=== PATIENT | male | born 1945 | race Caucasian/White ===

== ENCOUNTER → 2018-01-16 14:12 | Outpatient (CLI) | payer MEDICARE, MEDICAID, SELFPAY ==
--- NOTE | 2018-01-16 14:12 | DI.REPORT_ITS ---
SYMPTOMS/DIAGNOSIS: LEFT LOWER LOBE PNEUMONIA/PERSISTENT COUGH AND SHORTNESS OF BREATH, FATIGUE CHEST X-RAY, FRONTAL AND LATERAL VIEWS: Comparison is 03/30/16. The heart size and pulmonary vasculature are stable and within normal limits. The lungs are clear. No effusions or pneumothoraces are identified. Degenerative changes are seen in the spine. IMPRESSION: No acute pulmonary process.
[2018-01-16 15:46] LABS: NT-proBNP 3169 pg/mL
[2018-01-16 15:52] LABS: Abs Immature Grans 0.08 k/cumm (0.0-0.09); Absolute Eosinophil Count 0.17 k/cumm (0.0-0.7); Absolute Lymphocyte Count 2.02 k/cumm (1.2-3.4); Absolute Monocyte Count 1.12 k/cumm (0.11-0.7); Absolute Neutrophil Count 8.07 k/cumm (1.2-6.7); Basophils % 0.3; Eosinophils % 1.5; HCT 40.7 % (40.0-50.0); HGB 12.6 g/dL (13.5-17.5); Immature Grans % 0.7; Lymphocytes % 17.6; Mean Corpuscular Hemoglobin 23.7 pg (27.0-33.0); Mean Corpuscular Volume 76.6 fL (80-95); Mean Platelet Volume 10.2 fL (8.0-11.0); Monocytes % 9.7; Neutrophils % 70.2; Platelet Count 227 x1000/uL (130-400); RBC 5.31 m/cumm (4.50-6.00); RBC Distribution Width 19.7 % (11.8-14.1)
[2018-01-16 15:53] LABS: Absolute Basophil Count 0.03 k/cumm (0.0-0.2); Anisocytosis 2+; Diff Comment RBC Morph Reviewed; Hypochromasia 1+; Microcytosis 2+
[2018-01-16 15:54] LABS: Poikilocytes 1+
== END ==
PROVIDERS: PCP Family Medicine; Visit Provider Family Medicine
DX: J18.1 Lobar pneumonia, unspecified organism (principal); R06.02 Shortness of breath; R05 Cough; R53.83 Other fatigue
CPT/HCPCS: 71046; 36415; 83880; 85025

== ENCOUNTER 2018-03-18 02:45 | Outpatient (CLI) | payer MEDICARE, MEDICAID, SELFPAY ==
[2018-03-18 08:31] LABS: HGB 15.1 g/dL (13.5-17.5); Mean Corp. HGB Concentration 31.5 g/dL (32.0-36.0); Mean Corpuscular Hemoglobin 25.6 pg (27.0-33.0); Mean Corpuscular Volume 81.4 fL (80-95); Mean Platelet Volume 9.9 fL (8.0-11.0); Platelet Count 222 x1000/uL (130-400); White Blood Cell Count 11.29 k/cumm (4.4-10.8)
[2018-03-18 08:44] LABS: Hemoglobin A1C 7.6 % (4.5-6.2)
[2018-03-18 08:59] LABS: COMMENT (LAB VIEW ONLY) 52.64 mg/dL; Microalb ug/mg Crea 1417.9 ug/mg Cr
[2018-03-18 09:12] LABS: Iron 59 ug/dL (50-175)
[2018-03-18 09:21] LABS: ALT 33 U/L (12-78); AST 19 U/L (15-37); Albumin 3.9 g/dL (3.4-5.0); Alkaline Phosphatase 131 U/L (46-116); Anion Gap 10.4 mmol/L (3-11); BUN 31 mg/dL (7-18); Bilirubin, Total 0.8 mg/dL (0.2-1.0); CO2 26.6 mmol/L (21.0-32.0); CREATININE 1.51 mg/dL (0.70-1.30); Calcium 9.1 mg/dL (8.5-10.1); Chloride 104 mmol/L (98-107); Glucose 149 mg/dL (70-100); NT-proBNP 3251 pg/mL; Potassium 4.4 mmol/L (3.5-5.1); Sodium 141 mmol/L (136-145); Total Protein 7.6 g/dL (6.4-8.2)
[2018-03-18 09:44] LABS: Ferritin 37 ng/mL (8-388)
== END 2018-03-18 03:05 ==
PROVIDERS: PCP Family Medicine; Visit Provider Family Medicine
DX: E11.9 Type 2 diabetes mellitus without complications (principal); D50.9 Iron deficiency anemia, unspecified; R06.02 Shortness of breath; I25.10 Atherosclerotic heart disease of native coronary artery without angina pectoris; D64.9 Anemia, unspecified
CPT/HCPCS: 36415; 80053; 85027; 82043; 82570; 82728; 83036; 83540; 83880

== ENCOUNTER 2018-05-01 20:18 | Outpatient (REF) | payer MEDICARE, MEDICAID, SELFPAY | END 2018-05-01 20:38 | LOC: LBN 20:18 | PROVIDERS: PCP Family Medicine | DX: S91.001A Unspecified open wound, right ankle, initial encounter (principal) | CPT/HCPCS: 87070; 87205 ==

== ENCOUNTER 2018-07-04 02:01 | Outpatient (CLI) | payer MEDICARE, MEDICAID, SELFPAY ==
[2018-07-04 09:11] LABS: ALT 23 U/L (12-78); AST 16 U/L (15-37); Albumin 3.6 g/dL (3.4-5.0); Alkaline Phosphatase 121 U/L (46-116); Anion Gap 7.1 mmol/L (3-11); BUN 23 mg/dL (7-18); Bilirubin, Total 1.4 mg/dL (0.2-1.0); CO2 30.9 mmol/L (21.0-32.0); CREATININE 1.46 mg/dL (0.70-1.30); Calcium 8.9 mg/dL (8.5-10.1); Chloride 101 mmol/L (98-107); Cholesterol 73 mg/dL (50-200); Glucose 143 mg/dL (70-100); HDL Cholesterol 28 mg/dL (40-60); Hemoglobin A1C 7.1 % (4.5-6.2); Iron 62 ug/dL (50-175); LDL CHOLESTEROL 29 mg/dL (<100); Magnesium 1.5 mg/dL (1.8-2.4); Potassium 4.2 mmol/L (3.5-5.1); Sodium 139 mmol/L (136-145); Total Iron Binding Capacity 318 ug/dL (250-450); Total Protein 7.3 g/dL (6.4-8.2); Transferrin Sat 19 % (20-55); Triglyceride 109 mg/dL (30-150)
== END 2018-07-04 02:21 ==
PROVIDERS: PCP Family Medicine; Visit Provider Family Medicine
DX: E11.9 Type 2 diabetes mellitus without complications (principal); D50.9 Iron deficiency anemia, unspecified; E83.42 Hypomagnesemia
CPT/HCPCS: 36415; 80053; 80061; 83721; 83036; 83540; 83550; 83735

== ENCOUNTER 2018-11-12 00:07 | Outpatient (CLI) | payer MEDICARE, MEDICAID, SELFPAY ==
--- NOTE | 2018-11-12 09:45 | MERGE_ITS ---
*[facility]* * Cardiology* [address] [place] [address] Date of study: 11/12/2018 Transthoracic Echocardiography M-mode, complete 2D, complete spectral Doppler, and color Doppler *STUDY CONCLUSIONS* Impressions: The patient was in atrial fibrillation throughout study. This rhythm can interfere with accurate global and segmental wall motion analysis. Summary: 1. Procedure narrative: Image quality was fair. 2. Left ventricle: The cavity size was normal. Wall thickness was increased in a pattern of mild LVH. There was severe asymmetric hypertrophy of the septum.1.9 cm septal thickness. Systolic function was at the lower limits of normal. The estimated ejection fraction was 50-55%. There was no dynamic obstruction. Wall motion was normal; there were no regional wall motion abnormalities. 3. Aortic valve: Valve mobility was restricted. There was moderate to severe stenosis. Peak velocity (S): 2.8m/sec. Mean gradient (S): 19.7mm Hg. VTI ratio of LVOT to aortic valve: 0.32. Valve area (VTI): 1cm^2. 4. Ascending aorta: The ascending aorta was mildly dilated. 5. Mitral valve: Mildly calcified annulus. Mildly thickened leaflets. 6. Left atrium: The atrium was moderately dilated. 7. Right ventricle: The cavity size was normal. Wall thickness was normal. Systolic function was normal. 8. Right atrium: The atrium was moderately dilated. 9. Pulmonary arteries: Pulmonary systolic pressure was increased, in the range of 35mm Hg to 45mm Hg. *PATIENT PRESENTATION* Height: 180.3cm ((71in) ) S/D Pressure: 155 / 70 Weight: 140.6kg ((309.4lb) ) BSA: 2.72m^2 Test start time: 09:45 AM. Test stop time: 11:00 AM. PERFORMING Unknown ORDERING Ofelia Carter REFERRING Ofelia Carter CONSULTING Therese Jeffrey PERFORMING [facility] [employer] Abby Trinity, RT (R)(CT), [facility] *PROCEDURE DATA* Procedure information: The patient was identified by two identifiers. This study was interpreted by [facility]. Pertinent images and digital data are archived for permanent storage and are available for subsequent review. Comparison was made to the study of 10/03/2017. Study status: Routine. Transthoracic echocardiography. M-mode, complete 2D, complete spectral Doppler, and color Doppler. A Transthoracic Echocardiogram was performed. Scanning was performed from the parasternal, apical, subcostal, and suprasternal notch acoustic windows. Images were obtained using an [id number] cardiac ultrasound machine. Image quality was fair. Study completion: The patient tolerated the procedure well. There were no complications. History: PMH: CAD AFIB i25.10, i.35.0, *CARDIAC ANATOMY* Left ventricle: The cavity size was normal. Wall thickness was increased in a pattern of mild LVH. There was severe asymmetric hypertrophy of the septum.1.9 cm septal thickness. Systolic function was at the lower limits of normal. The estimated ejection fraction was 50-55%. There was no dynamic obstruction. Wall motion was normal; there were no regional wall motion abnormalities. The study was not technically sufficient to allow evaluation of LV diastolic dysfunction due to atrial fibrillation. Aortic valve: Probably trileaflet; severely thickened leaflets. Valve mobility was restricted. Doppler: There was moderate to severe stenosis. There was no significant regurgitation. VTI ratio of LVOT to aortic valve: 0.32. Valve area (VTI): 1cm^2. Indexed valve area (VTI): 0.4cm^2/m^2. Peak velocity ratio of LVOT to aortic valve: 0.33. Valve area (Vmax): 1.1cm^2. Indexed valve area (Vmax): 0.4cm^2/m^2. Mean velocity ratio of LVOT to aortic valve: 0.34. Valve area (Vmean): 1.1cm^2. Indexed valve area (Vmean): 0.4cm^2/m^2. Mean gradient (S): 19.7mm Hg. Peak gradient (S): 30.8mm Hg. Aorta: Aortic root: The aortic root was at upper normal limits. Ascending aorta: The ascending aorta was mildly dilated. Mitral valve: Mildly calcified annulus. Mildly thickened leaflets. Mobility was not restricted. Doppler: Transvalvular velocity was within the normal range. There was no evidence for stenosis. There was no significant regurgitation. Valve area by pressure half-time: 4.5cm^2. Indexed valve area by pressure half-time: 1.7cm^2/m^2. Peak gradient (D): 5.5mm Hg. Left atrium: The atrium was moderately dilated. Right ventricle: The cavity size was normal. Wall thickness was normal. Systolic function was normal. Pulmonic valve: The pulmonary valve appears to be grossly normal. Doppler: Transvalvular velocity was within the normal range. There was no evidence for stenosis. There was no significant regurgitation. Peak gradient (S): 2mm Hg. Tricuspid valve: Structurally normal valve. Doppler: Transvalvular velocity was within the normal range. There was no evidence for stenosis. There was trivial regurgitation. Pulmonary artery: Pulmonary systolic pressure was increased, in the range of 35mm Hg to 45mm Hg. Right atrium: The atrium was moderately dilated. Pericardium: There was no pericardial effusion. Systemic veins: Inferior vena cava: Well visualized. The vessel was patent and normal in size. The respirophasic diameter changes were in the normal range (greater than or equal to 50%). Baseline ECG: Atrial fibrillation. Measurements Left ventricle Value 10/03/2017 Reference LV ID, ED, PLAX 4.1 cm 4.7 3.5 - 6.0 LV ID, ES, PLAX 3.1 cm 3.5 2.1 - 4.0 LV PW thickness, ED, PLAX 1.2 cm 1.2 LV end-diastolic volume, 113 ml 93 1-p A2C LV ejection fraction, 1-p 54 % 56 A2C LV end-diastolic volume, 132 ml 105 1-p A4C LV ejection fraction, 1-p 54 % 45 A4C LV e', lateral 0.091 m/sec 0.119 LV E/e', lateral 13 11 LV e', medial 0.037 m/sec 0.048 LV E/e', medial 31 27 LV e', average 0.064 m/sec 0.083 LV E/e', average 18 16 Ventricular septum Value 10/03/2017 Reference IVS thickness, ED, PLAX 1.9 cm 1.7 LVOT Value 10/03/2017 Reference LVOT ID, A-P 2.0 cm 2.0 LVOT area 3.2 cm^2 3.2 LVOT peak velocity, S 0.91 m/sec 1.08 LVOT mean velocity, S 0.72 m/sec 0.82 LVOT VTI, S 19.3 cm 24.5 LVOT peak gradient, S 3.3 mm Hg 4.6 LVOT mean gradient, S 2.3 mm Hg 2.9 Stroke volume (SV), LVOT 61 ml 79 DP Stroke index (SV/bsa), 22 ml/m^2 30 LVOT DP Aortic valve Value 10/03/2017 Reference Aortic valve peak 2.8 m/sec 3.1 velocity, S Aortic valve mean 2.12 m/sec 2.28 velocity, S Aortic valve VTI, S 61.0 cm 66.6 Aortic mean gradient, S 19.7 mm Hg 23 Aortic peak gradient, S 30.8 mm Hg 39.4 VTI ratio, LVOT/AV 0.32 0.37 Aortic valve area, VTI 1 cm^2 1.2 Velocity ratio, peak, 0.33 0.34 LVOT/AV Aortic valve area, peak 1.1 cm^2 1.1 velocity Velocity ratio, mean, 0.34 0.36 LVOT/AV Aortic valve area, mean 1.1 cm^2 1.2 velocity Aortic valve area/bsa, 0.4 cm^2/m^2 0.4 mean velocity Aorta Value 10/03/2017 Reference Aortic root ID, ED 3.7 cm 3.7 Ascending aorta ID, A-P, S 3.7 cm 3.6 Left atrium Value 10/03/2017 Reference LA ID, A-P, ES 4.8 cm 5.0 LA ID/bsa, A-P 1.8 cm/m^2 1.9 <=2.2 LA area, ES, A4C (H) 36.3 cm^2 36 8.8 - 23.4 LA area, ES, A2C 21 cm^2 34 LA volume/bsa, ES, 1-p A4C 58 ml/m^2 56 LA volume, ES, 2-p 104 ml 133 LA volume/bsa, ES, 2-p 38 ml/m^2 50 LA/aortic root ratio 1.3 1.35 Mitral valve Value 10/03/2017 Reference Mitral E-wave peak 1.17 m/sec 1.3 velocity Mitral deceleration time 169 ms 165 150 - 230 Mitral pressure half-time 49 ms 48 Mitral peak gradient, D 5.5 mm Hg 6.8 Mitral valve area, PHT, DP 4.5 cm^2 4.6 Tricuspid valve Value 10/03/2017 Reference Tricuspid regurg peak 3.6 m/sec 3.6 velocity Tricuspid peak RV-RA 52.5 mm Hg 51.1 gradient Right atrium Value 10/03/2017 Reference RA area, ES, A4C (H) 30.8 cm^2 30.6 8.3 - 19.5 Pulmonic valve Value 10/03/2017 Reference Pulmonic peak gradient, S 2 mm Hg 3.6 Legend: (L) and (H) keila values outside specified reference range. I have personally reviewed the images and have reviewed and edited the reported findings. Electronically signed by Nitish Wilks 11/12/2018 12:43
== END 2018-11-12 00:27 ==
PROVIDERS: PCP Family Medicine; Visit Provider Internal Medicine Cardiovascular Disease
DX: I48.91 Unspecified atrial fibrillation (principal); I25.10 Atherosclerotic heart disease of native coronary artery without angina pectoris; I35.0 Nonrheumatic aortic (valve) stenosis; I10 Essential (primary) hypertension; E11.9 Type 2 diabetes mellitus without complications
CPT/HCPCS: 93306

== ENCOUNTER 2018-11-29 02:37 | Outpatient (CLI) | payer MEDICARE, MEDICAID, SELFPAY ==
[2018-11-29 11:50] LABS: Hemoglobin A1C 8.2 % (4.5-6.2)
[2018-11-29 12:01] LABS: ALT 25 U/L (12-78); AST 17 U/L (15-37); Albumin 3.4 g/dL (3.4-5.0); Alkaline Phosphatase 123 U/L (46-116); Anion Gap 7.1 mmol/L (3-11); BUN 24 mg/dL (7-18); CO2 28.9 mmol/L (21.0-32.0); CREATININE 1.31 mg/dL (0.70-1.30); Calcium 8.7 mg/dL (8.5-10.1); Chloride 102 mmol/L (98-107); Estimated GFR 53.34 (mL/min/1.73m2); Glucose 207 mg/dL (70-100); Potassium 4.4 mmol/L (3.5-5.1); Sodium 138 mmol/L (136-145)
== END 2018-11-29 02:57 ==
PROVIDERS: PCP Family Medicine; Visit Provider Family Medicine
DX: E11.21 Type 2 diabetes mellitus with diabetic nephropathy (principal)
CPT/HCPCS: 36415; 80053; 82043; 82570; 83036

== ENCOUNTER 2018-12-09 01:58 | Outpatient (CLI) | payer MEDICARE, MEDICAID, SELFPAY ==
--- NOTE | 2018-12-09 09:36 | DI.RAD_ITS ---
SYMPTOM/DIAGNOSIS: CHRONIC COUGH, R05 PA AND LATERAL CHEST: Comparison is made with 16 January 2018 The heart is enlarged, unchanged. The aorta shows calcification. There are mild underlying chronic interstitial changes. No superimposed acute infiltrate, effusion or pulmonary edema seen. IMPRESSION: No acute abnormality.
== END 2018-12-09 02:18 ==
PROVIDERS: PCP Family Medicine; Visit Provider Family Medicine
DX: R05 Cough (principal); I51.7 Cardiomegaly
CPT/HCPCS: 71046

== ENCOUNTER 2018-12-27 04:16 | Outpatient (CLI) | payer MEDICARE, MEDICAID, SELFPAY ==
[2018-12-27] MEDS: Inhaler, Assist Device 1 EACH MC (10:43)
[2018-12-27] MEDS: Albuterol HFA 18 GM 200 PUFF INH IH (10:44)
--- NOTE | 2018-12-27 15:59 | PFT_ITS ---
PULMONARY FUNCTION TEST REPORT DATE OF SERVICE: December 27, 2018 REQUESTING PROVIDER: Therese Jeffrey M.D. Spirometry shows mild obstructive airways disease with no significant bronchodilator response. Lung volumes show no evidence of restriction. Diffusion capacity mildly reduced, which is moderately reduced when corrected to alveolar volume. Airways resistance normal. IMPRESSION: Overall mild obstructive airways disease, however both spirometries were suboptimal patient effort. There is no significant bronchodilator response. This is associated with mild diffusion defect. When this study was compared to previous one from 04/15/09, the patient has a total of 1040 cc's decline in FVC; FEV1 has declined by 1170 cc's. Part of the decline may be related to an effort-related phenomenon. Clinical correlation recommended. JANIYA/brittany D/
== END 2018-12-27 04:36 ==
PROVIDERS: PCP Family Medicine; Visit Provider Family Medicine
DX: R06.09 Other forms of dyspnea (principal); R05 Cough
CPT/HCPCS: 94060; 94150; 94726; 94729

== ENCOUNTER → 2019-02-06 13:13 | Outpatient (BNVA) | payer MEDICARE, MEDICAID, SELFPAY | PROVIDERS: PCP Family Medicine; Visit Provider Internal Medicine Cardiovascular Disease | DX: I25.10 Atherosclerotic heart disease of native coronary artery without angina pectoris (principal); I48.91 Unspecified atrial fibrillation; Z79.01 Long term (current) use of anticoagulants; I12.9 Hypertensive chronic kidney disease with stage 1 through stage 4 chronic kidney disease, or unspecified chronic kidney disease; E78.5 Hyperlipidemia, unspecified; I73.9 Peripheral vascular disease, unspecified; I35.0 Nonrheumatic aortic (valve) stenosis; N18.9 Chronic kidney disease, unspecified | CPT/HCPCS: 99214 ==

== ENCOUNTER 2019-02-26 08:34 | Outpatient (CLI) | payer MEDICARE, MEDICAID, SELFPAY ==
[2019-02-26 09:40] LABS: Bilirubin Negative (Negative); Blood Moderate (Negative); Clarity Clear (Clear); Glucose Negative (Negative); Ketones Negative (Negative); Leukocyte Esterase Negative (Negative); Nitrite Negative (Negative); Urobilinogen 0.2 EU/dL (Up TO 0.2); pH 6.5 (5-8)
[2019-02-26 09:46] LABS: Hemoglobin A1C 7.8 % (4.5-6.2)
[2019-02-26 09:52] LABS: Bacteria Rare HPF (Negative); C & S Indicated? No; Crystals Rare Amorphous HPF (Negative); Epithelial Cells Rare HPF (Negative); Mucus Negative (Negative); RBC 0-2 (0-2); WBC 0-2 HPF (0-5)
[2019-02-26 10:34] LABS: Anion Gap 15.4 mmol/L (3-11); BUN 29 mg/dL (7-18); CO2 22.6 mmol/L (21.0-32.0); CREATININE 2.36 mg/dL (0.70-1.30); Calcium 8.7 mg/dL (8.5-10.1); Chloride 99 mmol/L (98-107); Estimated GFR 27.04 (mL/min/1.73m2); Glucose 90 mg/dL (70-100); Magnesium 1.8 mg/dL (1.8-2.4); Sodium 137 mmol/L (136-145); Uric Acid 8.1 mg/dL (3.5-7.2)
[2019-02-26 10:38] LABS: COMMENT (LAB VIEW ONLY) 58.65 mg/dL
[2019-02-26 10:40] LABS: Microalb ug/mg Crea 418.8 ug/mg Cr
== END 2019-02-26 08:54 ==
PROVIDERS: PCP Family Medicine; Referring Provider Family Medicine; Visit Provider Family Medicine
DX: E11.9 Type 2 diabetes mellitus without complications (principal); E83.42 Hypomagnesemia; Z80.52 Family history of malignant neoplasm of bladder
CPT/HCPCS: 80048; 81003; 81015; 82043; 82570; 83036; 83735; 84550; 86140

== ENCOUNTER 2019-03-18 12:32 | Outpatient (CLI) | payer MEDICARE, MEDICAID, SELFPAY ==
--- NOTE | 2019-03-18 12:07 | DI.RAD_ITS ---
EXAM: XR ANKLE RT COMPLETE INDICATION: pain. COMPARISON: RIGHT ANKLE COMPLETE from 10/24/2016 TECHNIQUE: 2D digital imaging was performed. FINDINGS: There is a mildly displaced oblique fracture through the base of the medial malleolus. There is an o sseous density adjacent to the tip of the lateral malleolus. This is suspicious for an avulsed fract ure. There are marked degenerative changes seen at the ankle joint. There are subchondral cysts and scler osis with marked joint space narrowing. There is soft tissue swelling about the ankle. Extensive vascular calcifications are present. There is a small spur at the plantar surface of the calcaneus. IMPRESSION: Mildly displaced fracture involving the medial malleolus. Question of an avulsed fracture arising from the lateral malleolus.
== END 2019-03-18 12:52 ==
PROVIDERS: PCP Family Medicine; Referring Provider Family Medicine; Visit Provider Orthopaedic Surgery
DX: M25.571 Pain in right ankle and joints of right foot (principal); M19.071 Primary osteoarthritis, right ankle and foot; M79.89 Other specified soft tissue disorders; M77.31 Calcaneal spur, right foot; E11.610 Type 2 diabetes mellitus with diabetic neuropathic arthropathy; Z79.4 Long term (current) use of insulin
CPT/HCPCS: 99214; 73610

== ENCOUNTER 2019-04-22 11:22 | Outpatient (CLI) | payer MEDICARE, MEDICAID, SELFPAY ==
--- NOTE | 2019-04-22 11:13 | DI.RAD_ITS ---
EXAM: XR FINGER LT INDEX INDICATION: pain. COMPARISON: No exams were available for comparison TECHNIQUE: 2D digital imaging was performed. FINDINGS: An elongated metallic foreign body is seen in the ventral soft tissues of the level of the proximal phalanx. Vascular calcifications are seen. There is soft tissue swelling. The bones appear osteope paula. There is mild joint space narrowing and periarticular spurring, greater at the distal interphal angeal joint. IMPRESSION: Degenerative changes. Soft tissue foreign body.
== END 2019-04-22 11:42 ==
PROVIDERS: PCP Family Medicine; Visit Provider Orthopaedic Surgery
DX: M79.645 Pain in left finger(s) (principal); M79.89 Other specified soft tissue disorders; M85.88 Other specified disorders of bone density and structure, other site; S60.451A Superficial foreign body of left index finger, initial encounter; X58.XXXA Exposure to other specified factors, initial encounter
CPT/HCPCS: 99214; 73140

== ENCOUNTER → 2019-05-01 13:58 | Outpatient (BNVA) | payer MEDICARE, MEDICAID, SELFPAY | PROVIDERS: PCP Family Medicine; Referring Provider Family Medicine; Visit Provider Internal Medicine Cardiovascular Disease | DX: I35.0 Nonrheumatic aortic (valve) stenosis (principal); I25.10 Atherosclerotic heart disease of native coronary artery without angina pectoris; E11.22 Type 2 diabetes mellitus with diabetic chronic kidney disease; I12.9 Hypertensive chronic kidney disease with stage 1 through stage 4 chronic kidney disease, or unspecified chronic kidney disease; E78.5 Hyperlipidemia, unspecified; I73.9 Peripheral vascular disease, unspecified; N18.9 Chronic kidney disease, unspecified; Z79.4 Long term (current) use of insulin | CPT/HCPCS: 99205; 99215 ==

== ENCOUNTER 2019-06-10 14:35 | Outpatient (REF) | payer MEDICARE, MEDICAID, SELFPAY ==
[2019-06-10 15:16] LABS: Anion Gap 11.5 mmol/L (3-11); BUN 58 mg/dL (7-18); CO2 16.5 mmol/L (21.0-32.0); CREATININE 1.94 mg/dL (0.70-1.30); Calcium 8.3 mg/dL (8.5-10.1); Chloride 89 mmol/L (98-107); Estimated GFR 33.91 (mL/min/1.73m2); Glucose 113 mg/dL (74-106)
[2019-06-10 15:29] LABS: Potassium 6.3 mmol/L (3.5-5.1); Sodium 117 mmol/L (136-145)
== END 2019-06-10 14:55 ==
LOC: LBN 14:35
PROVIDERS: PCP Family Medicine; Visit Provider Nurse Practitioner Adult Health
DX: E11.9 Type 2 diabetes mellitus without complications (principal); N18.3 Chronic kidney disease, stage 3 (moderate); I10 Essential (primary) hypertension; D64.9 Anemia, unspecified; E78.5 Hyperlipidemia, unspecified
CPT/HCPCS: 80048

== ENCOUNTER 2019-06-10 17:21 | Emergency (ER) | payer MEDICARE, MEDICAID, SELFPAY ==
[2019-06-10] VITALS (44 sets, daily range): BP systolic 84–145; BP diastolic 37–114; PULSE 51–176; RESP 4–25; TEMP 36.4; O2SAT 91–99
[2019-06-10] MEDS: Albuterol 2.5 MG/3 ML INH SOLN VIAL 7.5 MG UPD (17:05)
--- NOTE | 2019-06-10 17:07 | W.ED.GENAD ---
Discharge Plan Disposition Patient Disposition: [facility] Condition: Critical Discharge Details Chief Complaint: SOB Clinical Impression: Cardiac tamponade, Acute pericardial effusion, Acute hyperkalemia, Acute hyponatremia, Acute urinary retention, Acute respiratory failure, Acute kidney injury Primary Care Provider: Therese Jeffrey ED Provider: Antonino Lucas Home Meds and New Rx's Prescriptions: No Action Basaglrosales Garcia U-100 Insulin 100 unit/mL (3 mL) insulin pen 40 unit subcut BID RF: 0 colchicine 0.6 mg tablet 0.6 mg PO DAILY Qty: 90 RF: 1 ONE TOUCH ULTRA 1 EACH EACH 1 ea Miscellaneous BID Qty: 180 RF: 4 (DME) lancets [OneTouch UltraSoft Lancets] 1 EACH misc 1 ea Miscellaneous BID Qty: 180 RF: 4 aspirin [Aspirin Low-Strength] 81 MG tablet,chewable 81 mg PO DAILY Qty: 30 RF: 5 (DME) BD Regular Bevel Ceres 1 EACH needle 1 ea Miscellaneous DAILY Qty: 100 RF: 4 (DME) pen needle, diabetic [BD Ultra-Fine Orig Pen Needle] 1 EACH needle Miscellaneous BID Qty: 100 RF: 5 amlodipine 5 mg tablet 5 mg PO DAILY Qty: 90 RF: 4 nitroglycerin [Nitrostat] 0.4 mg tablet, sublingual 0.4 mg Sublingual DIRECTED Qty: 25 RF: 4 ferrous sulfate 325 mg (65 mg iron) tablet 325 mg PO TID Qty: 90 RF: 4 Xarelto 20 mg tablet 20 mg PO DAILY Qty: 90 RF: 4 isosorbide mononitrate 60 mg tablet extended release 24 hr 60 mg PO DAILY Qty: 90 RF: 4 albuterol sulfate 90 mcg/actuation HFA aerosol inhaler 1 - 2 puff IH Q6H PRN (Reason: shortness of breath or wheezing) Qty: 2 RF: 6 (DME) Blood Glucose Test Strip 1 ea Miscellaneous DAILY Qty: 100 RF: 5 acetaminophen 325 mg Tablet 650 mg PO Q4H PRNRF: 0 furosemide 20 mg Tablet 20 mg PO DAILY RF: 0 fluticasone propionate 50 mcg/actuation [place],Suspension 1 spray INTRANASAL DAILY RF: 0 metformin 500 mg Tablet 500 mg PO .QEVE RF: 0 metoprolol succinate 50 mg Tablet Extended Release 24 Hr 50 mg PO DAILY RF: 0 sennosides-docusate sodium [Senna with Docusate Sodium] 8.6-50 mg Tablet 2 tab-cap PO BID RF: 0 metoprolol succinate 100 mg Tablet Extended Release 24 Hr 100 mg PO DAILY RF: 0 melatonin 3 mg Tablet 6 mg PO HS RF: 0 valsartan 320 mg Tablet 320 mg PO DAILY RF: 0 polyethylene glycol 3350 17 gram/dose Powder 17 g PO DAILY RF: 0 oxycodone 5 mg Tablet 5 mg PO Q4H PRNRF: 0 magnesium chloride 64 mg Tablet,Delayed Release (Dr/Ec) 64 mg PO BID RF: 0 Healthy Eyes Lutein-Zeaxanthin 60 mg-13.5 mg- 15 mg-2 mg-6 mg Capsule 1 cap PO QAM RF: 0 (DME) Oxygen Tank RF: 0 furosemide 40 mg tablet 40 mg PO DAILY RF: 0 metformin [Glucophage] 1,000 MG tablet 1,000 mg PO DAILY RF: 0 allopurinol [Zyloprim] 300 mg tablet 300 mg PO BID RF: 0 Medical Decision Making Upon my evaluation, this patient had a high probability of imminent or life-threatening deterioration, which required my direct attention, intervention, and personal management. I have personally provided 45 minutes of critical care time exclusive of time spent on separately billable procedures. Time includes review of laboratory data, radiology results, discussion with consultants, and monitoring for potential decompensation. Interventions were performed as documented. 73-year-old male with a past medical history of heart failure, CKD, insulin-dependent diabetes, moderate aortic stenosis, and a history of stroke. He has coronary artery disease with stenting in both 2005 and 2007. He presents today for evaluation of increasing oxygen demand and electrolyte abnormalities. Patient was noted to have slight atypical mentation today. Labs were drawn and his sodium was noted to be 117. Is also had a slight increase in oxygen requirements going from his normal 3 L to currently needing 5 L of oxygen per his care facility. Patient presents by EMS in notable respiratory distress. Upon their arrival oxygen was in the 70s on 5 L, they gave him 15 L and brought immediately to the ER. Physical exam demonstrates decreased breath sounds throughout, crackles and wheezes bilaterally. Mental status is ANO x1 but is able to answer yes or no questions. He does state that he does not want intubation or CPR. He also states that he does not want any significant heroic efforts. I did contact his significant other Mercedez Mejia, and discussed the case with her. She states that this is also what his wishes have been. 7:33 PM Portable chest x-ray was performed immediately upon arrival, notably wide heart, blood pressure stable, notable vascular congestion. Bedside ultrasound was performed and demonstrated notable pericardial effusion with what appears to be mild right ventricular collapse. Garcia catheter was placed and within 15 minutes he had 2 L of excreted urine. Laboratory work-up is returning, patient demonstrates sodium of 116, potassium of 6.4, EKG shows a wide complex dysrhythmia, with what appears to be nonspecific ST depression primarily in the anterior lateral leads. No clear evidence of electrical alternans on EKG though. Creatinine is 2.05, which is slightly higher than baseline, proBNP is notably elevated at 20,000, troponin is normal. Urinalysis shows no infection. He does have a white count of 15. Patient demonstrates notably complicated picture. He shows both significant fluid overload, as well as kidney injury, in conjunction with electrolyte derangement. This may be secondary to some of his medications, or potential secondary to post renal obstruction which is now been released by the Garcia catheter. He has been doing well with BiPAP. ABG demonstrates evidence of a metabolic acidosis with PCO2 of 33, pH is 7.2, and a bicarb of 13. Patient is on Xarelto. Blood pressure is stable for the time being, I did discuss with him the notable critical nature of his current status, as well as the potential need for procedure like a pericardiocentesis and a pericardial window. I discussed the concern for morbidity and mortality for all of this is a broad clinical picture, at this time the patient has had a notable change in his thoughts, and states that he would like to go to [facility] immediately to get these procedures performed. He still would like to hold off on intubation and CPR. However he does want these other potential heroic interventions otherwise. I discussed the case with [facility] lumber chain offbearer, as well as cardiology, I spoke with Dr. Atkins, case was also discussed with the ICU attending Dr. Leonard. They agree with the assessment and plan recommend transfer. They to agree on holding off on pericardiocentesis at this time secondary to the patient's stable vitals. Patient will be transferred to [facility] by [facility]. For the patient's potassium we will give 3 albuterol nebulizations, 10 units of IV insulin, amp of D50, calcium gluconate. I have extensively reviewed the treatment plan with the patient. I have addressed all patient concerns at this time. I have also discussed the plan with the admitting physician and they agree with the current assessment and plan and have agreed to assume responsibility for the patient. All parties demonstrate verbal understanding and agreement with our assessment and plan at this time. Of note the patient's significant other is Ms. Mercedez Ponce and she can be reached at [phone]. I did personally call her and update her of the patient's current clinical scenario. EKG 17: 32 Rate 59, atrial fibrillation, potential right bundle branch block versus wide-complex secondary to hyperkalemia. Less than a millimeter ST depression in the lateral leads. As well as lead III and aVF. Notable changes from prior EKGs. FINDINGS: Lungs: Low lung volumes. Prominent, indistinct pulmonary vasculature. left basilar hazy opacity. Pleural space: Unremarkable. No pleural effusion. No pneumothorax. Heart/Mediastinum: Stable enlarged cardiomediastinal silhouette. Vasculature: Redemonstrated aortic arch calcification. Bones/joints: Unremarkable. IMPRESSION: 1. Pulmonary edema. 2. Left basilar hazy opacity consistent with edema, atelectasis, aspiration or infection. Thank you for allowing us to participate in the care of your patient. Dictated and Authenticated by: Roger Christie MD 06/10/2019 6:03 PM Eastern Time ([place] & [place]) HPI General Date/Time Provider Initiated Documentation: 06/10/19 17:34. HPI Narrative: 73-year-old male who is a notably poor historian with a past medical history of atrial fibrillation, heart failure, CKD, insulin-dependent diabetes, moderate aortic stenosis, and a history of stroke. He has coronary artery disease with stenting in both 2005 and 2007. He had recent surgery on his right lower extremity at the end of April, and [facility]. He is on Xarelto. He presents today for evaluation of increasing oxygen demand and electrolyte abnormalities. Patient was noted to have slight atypical mentation today. Labs were drawn and his sodium was noted to be 117. Is also had a slight increase in oxygen requirements going from his normal 3 L to currently needing 5 L of oxygen per nursing report. However upon EMS arrival they notice his oxygen to be in the high 70s, they started him on 15 L brought him to the ER for further evaluation and management. Currently the patient is a notable respiratory distress, he denies chest pain weakness. He is a poor historian and has no other complaints. I did speak with Mercedez Edgarball who is the significant other/close friend of the patient, discussed the case with her for additional background. Of note both Mercedez Ponce and the patient are stating that he does not want to be intubated he does not want CPR and he does not want any heroic measures or significant procedures. Related Data Home Medications Medication Instructions Recorded Confirmed lancets [Onetouch Lancets] #180 ea 09/28/14 05/01/19 aspirin [Aspirin Low-Strength] 81 mg PO DAILY #30 tab-cap 12/29/14 06/10/19 needle (disp) 21 G [Ceres] #100 ea 08/24/16 05/01/19 pen needle, diabetic [Bd #100 11/23/17 05/01/19 Ultra-Fine Pen Needle] amlodipine 5 mg tablet 5 mg PO DAILY #90 tab-cap 05/07/18 06/10/19 nitroglycerin 0.4 mg sublingual 0.4 mg SUBLINGUAL DIRECTED #25 05/27/18 06/10/19 tablet tab-cap ferrous sulfate 325 mg (65 mg 325 mg PO TID #90 tab-cap 10/30/18 06/10/19 iron) tablet rivaroxaban 20 mg tablet 20 mg PO DAILY #90 tab-cap 10/30/18 06/10/19 isosorbide mononitrate 60 mg 60 mg PO DAILY #90 tab-cap 01/23/19 06/10/19 tablet,extended release 24 hr albuterol sulfate 90 mcg/actuation 1 - 2 puff IH Q6H PRN #2 each 01/30/19 05/01/19 aerosol inhaler blood sugar diagnostic #100 strip 02/04/19 05/01/19 colchicine 0.6 mg tablet 0.6 mg PO DAILY #90 tab 03/17/19 06/10/19 insulin glargine 100 unit/mL (3 40 unit SUBCUT BID ml 05/01/19 06/10/19 mL) subcutaneous pen Oxygen 06/10/19 06/10/19 acetaminophen 650 mg PO Q4H PRN 06/10/19 06/10/19 allopurinol [Zyloprim] 300 mg PO BID 06/10/19 06/10/19 fluticasone propionate 1 spray INTRANASAL DAILY 06/10/19 06/10/19 furosemide 20 mg PO DAILY 06/10/19 06/10/19 furosemide 40 mg PO DAILY 06/10/19 06/10/19 magnesium chloride 64 mg PO BID 06/10/19 06/10/19 melatonin 6 mg PO HS 06/10/19 06/10/19 metformin 500 mg PO .QEVE 06/10/19 06/10/19 metformin [Glucophage] 1,000 mg PO DAILY 06/10/19 06/10/19 metoprolol succinate 50 mg PO DAILY 06/10/19 06/10/19 metoprolol succinate 100 mg PO DAILY 06/10/19 06/10/19 oxycodone 5 mg PO Q4H PRN 06/10/19 06/10/19 polyethylene glycol 3350 17 g PO DAILY 06/10/19 06/10/19 sennosides-docusate sodium [Senna 2 tab-cap PO BID 06/10/19 06/10/19 with Docusate Sodium] valsartan 320 mg PO DAILY 06/10/19 06/10/19 vit C,H-As-isuls-lutein-zeaxan 1 cap PO QAM 06/10/19 06/10/19 [Healthy Eyes Lutein-Zeaxanthin] Previous Rx's Medication Instructions Recorded amlodipine 5 mg tablet 5 mg PO DAILY #90 tab-cap 05/07/18 nitroglycerin 0.4 mg sublingual 0.4 mg SUBLINGUAL DIRECTED #25 05/27/18 tablet tab-cap ferrous sulfate 325 mg (65 mg 325 mg PO TID #90 tab-cap 10/30/18 iron) tablet rivaroxaban 20 mg tablet 20 mg PO DAILY #90 tab-cap 10/30/18 isosorbide mononitrate 60 mg 60 mg PO DAILY #90 tab-cap 01/23/19 tablet,extended release 24 hr albuterol sulfate 90 mcg/actuation 1 - 2 puff IH Q6H PRN #2 each 01/30/19 aerosol inhaler blood sugar diagnostic #100 strip 02/04/19 colchicine 0.6 mg tablet 0.6 mg PO DAILY #90 tab 03/17/19 Allergies Allergy/AdvReac Type Severity Reaction Status Date / Time ibuprofen AdvReac Intermediate BLEEDING Verified 06/10/19 17:24 ULCERS omeprazole AdvReac Intermediate n/v Verified 06/10/19 17:24 pantoprazole AdvReac Unknown unknown Verified 06/10/19 17:24 Review of Systems All systems reviewed & are unremarkable except as noted in HPI and below PFSH Medical History (Updated 04/10/19 @ 11:20 by Santhosh Gamino MD) RHODES (dyspnea on exertion) (Acute) Surgical History (Updated 11/28/18 @ 13:16 by Kristopher May) Procedure LEFT HEART CARDIAC CATH, 2007 Restenosis of LCX Stent placement INSERT 2 VASCULAR STENTS, 2005;[place]. [place] [facility] [place]OT[place]AC[place] Social History (Updated 05/01/19 @ 14:13 by Christi Perez RN) Smoking/Tobacco Use Status: Former Tobacco Use Second Hand Exposure: Yes Alcohol Intake: former Drug use: Never What type of physical activity do you participate in: sedentary lifestyle and restricted ROM & activity Exam Narrative Exam Narrative: 1.Const: Morbidly obese well-developed, appearing stated age 2.Eyes: PERRL, no conjunctival injection, and symmetrical lids. 3.ENT: Atraumatic external nose and ears. Dry MM. Neck: Symmetric, trachea midline, No thyromegaly. 4.CVS: +S1/S2, Peripheral pulses 1+ and equal in all extremities. 5.RESP: Muffled lung sounds throughout, mild wheezes in the bases bilaterally. Difficult to auscultate anything in particular. Notable respiratory distress. 6.GI: Soft, Nontender/Nondistended, No hepatosplenomegaly. No guarding or rebound. 7.MSK: Normocephalic/Atraumatic, cast is noted on right lower extremity. No significant pitting edema. Patient able to wiggle toes bilaterally. Capillary refill slightly delayed in both toes, but present. Dorsalis pedis +2 on the left. 8.Skin: Warm, Dry. No rashes or lesions. 9.Neuro: instructor product inspection II-XII grossly intact. Sensation grossly intact, no focal neurologic deficits. 10.Psych: ANO x1, able to answer yes and no questions.
--- NOTE | 2019-06-10 17:26 | DI.RAD_ITS ---
EXAM: XR PORTABLE CHEST AP INDICATION: SOB, increasing O2 demand. COMPARISON: XR CHEST 2V PA LATERAL from 12/09/2018 TECHNIQUE: 2D digital imaging was performed. FINDINGS: The heart appears enlarged but stable. There is atherosclerosis of the thoracic aorta. There is poor inspiration with prominence of the pulmonary vasculature. Question of an infiltrate in the left ibeth g base is noted. No definite effusions or pneumothoraces are identified. Degenerative changes are s een in the spine. IMPRESSION: 1. Indistinct pulmonary vasculature. This may be due to low lung volumes but mild pulmonary edema ca nnot be excluded. 2. Opacity in the left base. This may represent edema, atelectasis or infection.
[2019-06-10] MEDS: Albuterol/Ipratropium 3 ML UPD VIAL (17:35)
[2019-06-10 17:38] LABS: Abs Immature Grans 0.17 k/cumm (0.0-0.09); Absolute Basophil Count 0.02 k/cumm (0.0-0.2); Absolute Eosinophil Count 0.03 k/cumm (0.0-0.7); Absolute Lymphocyte Count 0.31 k/cumm (1.2-3.4); Absolute Monocyte Count 1.04 k/cumm (0.11-0.7); Basophils % 0.1; Eosinophils % 0.2; HCT 36.6 % (40.0-50.0); HGB 12.5 g/dL (13.5-17.5); Immature Grans % 1.1; Mean Corp. HGB Concentration 34.2 g/dL (32.0-36.0); Mean Corpuscular Hemoglobin 28.3 pg (27.0-33.0); Mean Corpuscular Volume 82.8 fL (80-95); Mean Platelet Volume 9.6 fL (8.0-11.0); Monocytes % 6.8; Neutrophils % 89.8; Platelet Count 256 x1000/uL (130-400); RBC 4.42 m/cumm (4.50-6.00); RBC Distribution Width 16.4 % (11.8-14.1); White Blood Cell Count 15.26 k/cumm (4.4-10.8)
[2019-06-10] MEDS: Albuterol/Ipratropium 3 ML UPD VIAL 6 ML UPD (17:45)
[2019-06-10] MEDS: Normal Saline 250 ML IV (17:45)
[2019-06-10 18:01] LABS: Ammonia 13 umol/L (11-32)
[2019-06-10 18:02] LABS: INR 1.3 (0.9-1.1); PTT Activated 40.3 sec (21.0-31.4); Prothrombin Time 13.2 sec (9.3-11.0)
--- NOTE | 2019-06-10 18:03 | DI.VRAD_ITS ---
PROCEDURE INFORMATION: Exam: XR Chest, 1 View Exam date and time: 06/10/2019 5:46 PM Age: 73 years old Clinical indication: Other: SOB, increasing o2 demand TECHNIQUE: Imaging protocol: XR of the chest Views: 1 view. COMPARISON: CR XR CHEST 2V PA LATERAL 12/09/2018 9:25 AM FINDINGS: Lungs: Low lung volumes. Prominent, indistinct pulmonary vasculature. left basilar hazy opacity. Pleural space: Unremarkable. No pleural effusion. No pneumothorax. Heart/Mediastinum: Stable enlarged cardiomediastinal silhouette. Vasculature: Redemonstrated aortic arch calcification. Bones/joints: Unremarkable. IMPRESSION: 1. Pulmonary edema. 2. Left basilar hazy opacity consistent with edema, atelectasis, aspiration or infection. Dictated and Authenticated by: Roger Christie MD. Ordering:BRONWYN Muñiz MD
[2019-06-10 18:06] LABS: HCO3 13 mmol/L (22-28); pCO2 33 mmHg (34-47); pO2 94 mmHg (83-108); sO2 97 % (94-98); tCO2 12 mmol/L (22-29)
[2019-06-10 18:09] LABS: Site Right Radial
[2019-06-10 18:10] LABS: FIO2 30 %
[2019-06-10 18:12] LABS: ALT 21 U/L (16-63); AST 21 U/L (15-37); Albumin 3.6 g/dL (3.4-5.0); Alkaline Phosphatase 139 U/L (46-116); Anion Gap 11.3 mmol/L (3-11); BUN 59 mg/dL (7-18); Bilirubin, Total 0.8 mg/dL (0.2-1.0); CO2 18.7 mmol/L (21.0-32.0); CREATININE 2.01 mg/dL (0.70-1.30); Calcium 8.4 mg/dL (8.5-10.1); Chloride 88 mmol/L (98-107); Estimated GFR 32.55 (mL/min/1.73m2); Glucose 113 mg/dL (74-106); TSH (W/Ref FT4) 4.01 uIU/mL (0.36-3.74); Total Protein 7.9 g/dL (6.4-8.2)
[2019-06-10] MEDS: methylPREDNISolone SUCC 125 MG VIAL IVP (18:17)
[2019-06-10] MEDS: Lidocaine 2% Jelly 6 ML SYR (18:21)
[2019-06-10 18:27] LABS: Sodium 118 mmol/L (136-145)
[2019-06-10 18:28] LABS: Potassium 6.8 mmol/L (3.5-5.1); Troponin I < 0.05 ng/Ml (<0.06)
[2019-06-10 18:45] LABS: Sodium, Urine 6 mmol/L
[2019-06-10 18:46] LABS: Bilirubin Negative (Negative); Blood Trace-intact (Negative); Clarity Clear (Clear); Glucose Negative (Negative); Ketones Negative (Negative); Leukocyte Esterase Negative (Negative); Nitrite Negative (Negative); Urobilinogen 0.2 EU/dL (Up TO 0.2)
[2019-06-10] MEDS: Dextrose 50%-Water 25 GM/50 ML SYR IVP (18:52)
[2019-06-10] MEDS: Insulin REGULAR-Human 100 UNITS/ML UNIT 10 UNITS IV (18:52)
[2019-06-10 18:57] LABS: FREE T4 0.95 ng/dL (0.76-1.46)
[2019-06-10] MEDS: Furosemide 20 MG/2 ML VIAL IVP (18:58)
--- NOTE | 2019-06-10 19:03 | NUR.NOTE ---
pt is alert and oriented to time and events , on arrival to the ED he told me and the ED physician that he did not want a breathing tube or chest compressions . he was started on bi pap right away, tolerating well. RT is at the bed side . he has a cast on his right lower leg. the toes are pink snfd he can move them . his care provider Eduin Dean was notified of his situation via phone by the ED MD Nursing Note:
[2019-06-10 19:07] LABS: Bacteria Negative HPF (Negative); C & S Indicated? No; Casts Negative LPF (Negative); Crystals Negative HPF (Negative); Epithelial Cells Negative HPF (Negative); Mucus Negative (Negative); Other Cells Negative (Negative); RBC Negative HPF (0-2); WBC 0-2 HPF (0-5)
[2019-06-10 19:14] LABS: Anion Gap 10.5 mmol/L (3-11); BUN 61 mg/dL (7-18); CO2 17.5 mmol/L (21.0-32.0); CREATININE 2.05 mg/dL (0.70-1.30); Calcium 8.2 mg/dL (8.5-10.1); Chloride 88 mmol/L (98-107); Estimated GFR 31.82 (mL/min/1.73m2); Glucose 120 mg/dL (74-106)
[2019-06-10 19:19] LABS: Sodium 116 mmol/L (136-145)
[2019-06-10 19:20] LABS: Potassium 6.4 mmol/L (3.5-5.1)
== END 2019-06-10 20:00 | disposition short-term general hospital (02) ==
PROVIDERS: Emergency Provider Student in an Organized Health Care Education/Training Program; PCP Family Medicine
DX: I30.9 Acute pericarditis, unspecified (principal); I31.4 Cardiac tamponade; J96.01 Acute respiratory failure with hypoxia; E87.5 Hyperkalemia; E87.1 Hypo-osmolality and hyponatremia; R33.8 Other retention of urine; N17.9 Acute kidney failure, unspecified; R94.31 Abnormal electrocardiogram [ECG] [EKG]; I13.0 Hypertensive heart and chronic kidney disease with heart failure and stage 1 through stage 4 chronic kidney disease, or unspecified chronic kidney disease; E11.22 Type 2 diabetes mellitus with diabetic chronic kidney disease; Z79.4 Long term (current) use of insulin; E87.79 Other fluid overload; E87.2 Acidosis; Z79.01 Long term (current) use of anticoagulants; I48.91 Unspecified atrial fibrillation; I25.10 Atherosclerotic heart disease of native coronary artery without angina pectoris; Z95.5 Presence of coronary angioplasty implant and graft; N18.9 Chronic kidney disease, unspecified; I50.9 Heart failure, unspecified
CPT/HCPCS: 36415; 36416; 51702; 80048; 80053; 82805; 82962; 93005; 94640; 96361; 96365; 96366; 96375; 99291; 36600; 71045; 81003; 81015; 82140; 82436; 83880; 84300; 84439; 84443; 84484; 85025; 85610; 85730; 93010; J0610; J1941; J2930; J7613; J7620

== ENCOUNTER 2019-06-19 20:56 | Emergency (ER) | payer MEDICARE, MEDICAID, SELFPAY ==
[2019-06-19 21:07] VITALS: BP 120/75; PULSE 92; RESP 20; TEMP 36.6; O2SAT 94
[2019-06-19 21:41] VITALS: PULSE 75; RESP 10; RESP 20; O2SAT 94
[2019-06-19 22:04] VITALS: BP 102/50; PULSE 99; O2SAT 97
[2019-06-19 22:05] VITALS: O2SAT 95
--- NOTE | 2019-06-19 22:06 | NUR.NOTE ---
Nursing Note: Pt on C PAP. Sats at 96%. Pt has no c/o. Room dark for patient comfort. Call light in hand
--- NOTE | 2019-06-19 22:27 | ED.GENADUL_ITS ---
Discharge Plan Disposition Patient Disposition: SNF (LEVEL 1) [facility] Condition: Good Discharge Details Chief Complaint: GenMedical Clinical Impression: Obstructive sleep apnea syndrome Primary Care Provider: Therese Jeffrey ED Provider: Aleksandr Gaines [place] Meds and New Rx's Prescriptions: Continued Basaglar KwikPen U-100 Insulin 100 unit/mL (3 mL) insulin pen 40 unit subcut BID RF: 0 colchicine 0.6 mg tablet 0.6 mg PO DAILY Qty: 90 RF: 1 ONE TOUCH ULTRA 1 EACH EACH 1 ea Miscellaneous BID Qty: 180 RF: 4 (DME) lancets [OneTouch UltraSoft Lancets] 1 EACH misc 1 ea Miscellaneous BID Qty: 180 RF: 4 aspirin [Aspirin Low-Strength] 81 MG tablet,chewable 81 mg PO DAILY Qty: 30 RF: 5 (DME) BD Regular Bevel [employer] 1 EACH needle 1 ea Miscellaneous DAILY Qty: 100 RF: 4 (DME) pen needle, diabetic [BD Ultra-Fine Orig Pen Needle] 1 EACH needle Miscellaneous BID Qty: 100 RF: 5 amlodipine 5 mg tablet 5 mg PO DAILY Qty: 90 RF: 4 nitroglycerin [Nitrostat] 0.4 mg tablet, sublingual 0.4 mg Sublingual DIRECTED Qty: 25 RF: 4 ferrous sulfate 325 mg (65 mg iron) tablet 325 mg PO TID Qty: 90 RF: 4 Xarelto 20 mg tablet 20 mg PO DAILY Qty: 90 RF: 4 isosorbide mononitrate 60 mg tablet extended release 24 hr 60 mg PO DAILY Qty: 90 RF: 4 albuterol sulfate 90 mcg/actuation HFA aerosol inhaler 1 - 2 puff IH Q6H PRN (Reason: shortness of breath or wheezing) Qty: 2 RF: 6 (DME) Blood Glucose Test Strip 1 ea Miscellaneous DAILY Qty: 100 RF: 5 acetaminophen 325 mg Tablet 650 mg PO Q4H PRNRF: 0 furosemide 20 mg Tablet 20 mg PO DAILY RF: 0 fluticasone propionate 50 mcg/actuation [place],Suspension 1 spray INTRANASAL DAILY RF: 0 metformin 500 mg Tablet 500 mg PO .QEVE RF: 0 metoprolol succinate 50 mg Tablet Extended Release 24 Hr 50 mg PO DAILY RF: 0 sennosides-docusate sodium [Senna with Docusate Sodium] 8.6-50 mg Tablet 2 tab-cap PO BID RF: 0 melatonin 3 mg Tablet 6 mg PO HS RF: 0 valsartan 320 mg Tablet 320 mg PO DAILY RF: 0 polyethylene glycol 3350 17 gram/dose Powder 17 g PO DAILY RF: 0 oxycodone 5 mg Tablet 5 mg PO Q4H PRNRF: 0 magnesium chloride 64 mg Tablet,Delayed Release (Dr/Ec) 64 mg PO BID RF: 0 Healthy Eyes Lutein-Zeaxanthin 60 mg-13.5 mg- 15 mg-2 mg-6 mg Capsule 1 cap PO QAM RF: 0 (DME) Oxygen Tank RF: 0 furosemide 40 mg tablet 40 mg PO DAILY RF: 0 metformin [Glucophage] 1,000 MG tablet 1,000 mg PO DAILY RF: 0 allopurinol [Zyloprim] 300 mg tablet 300 mg PO BID RF: 0 cefpodoxime 200 mg Tablet 200 mg PO BID RF: 0 tamsulosin 0.4 mg Capsule 0.4 mg PO DAILY RF: 0 Xarelto 20 mg Tablet 20 mg PO DAILY RF: 0 metoprolol succinate 200 mg Capsule,Sprinkle,Er 24hr RF: 0 Discharge Instructions Additional Instructions: Be sure that family brings your machine down for use while staying at [facility] rehab. Discharge Data Discharge Date/Time-TO BE ENTERED AT DEPARTURE: 06/20/19 06:58 Medical Decision Making <ABA Crain - Last Filed: 06/22/19 21:55> Is a 73-year-old gentleman with medical history of dyspnea on exertion who recently was admitted to [facility] for acute hypoxemic respiratory failure. Patient is a significant medical history of ASCVD, PVD, insulin-dependent type 2 diabetes, hypertension, hyperlipidemia, prior CVA/TIA, moderate to severe aortic stenosis, chronic atrial fib, obstructive sleep apnea on BiPAP. Patient's hospital course involved acute hypoxemic respiratory failure, hypovolemic hyponatremia, acute kidney injury sepsis of unclear source possibly pneumonia, and acute metabolic encephalopathy. Patient ultimately was discha rged a few hours ago sent to the [facility] where they did not have a BiPAP and when fell asleep does have a history of obstructive sleep apnea his O2 sats dropped they felt uncomfortable keeping in the facility overnight until having a BiPAP brought from the family tomorrow. Patient has absolutely no medical concerns or complaints at this time. Patient's initial vital signs are reassuring. Respiratory assisted placing CPAP. Current plan is to have patient stay in the emergency room overnight with discharge back to [facility] in the morning and family will provide patient BiPAP tomorrow. <Aleksandr Gaines MD - Last Filed: 06/20/19 06:57> Patient remained in the ED overnight on CPAP without incident. Will be discharged back to ECF. Family to bring his machine to ECF today for use while there. HPI <ABA Crain - Last Filed: 06/22/19 21:55> General Date/Time Provider Initiated Documentation: 06/19/19 21:37 . HPI Narrative: Is a 73-year-old patient presenting to the emergency room this evening for concerns placed by health [facility] rehab as patient was recently transferred back to [facility] from a recent hospital admission in [facility] for hypoxia. Patient was brought to the emergency room this evening as he had an episode of hypoxia which occurred this evening which they are relating to him not having his BiPAP. Patient has no specific medical concerns or complaints at this time. Patient reports he feels well. Patient's oxygen saturation is currently 94% and again patient has no focal complaints. Health and rehab reports that his O2 sat dropped into the 80s when he was falling asleep and for this reason patient is currently on CPAP at home. Patient does have a CPAP machine at his home but family is unwilling to bring the machine to health and rehab tonight they will bring it tomorrow therefore health and rehab sent him to the emergency room to have an overnight stay where he could have BiPAP temporarily. Again otherwise patient has no medical concerns or complaints at this time. Related Data Home Medications Medication Instructions Recorded Confirmed lancets [OneTouch UltraSoft #180 ea 09/28/14 05/01/19 Lancets] aspirin [Aspirin Low-Strength] 81 mg PO DAILY #30 tab-cap 12/29/14 06/10/19 BD Regular Bevel [employer] #100 ea 08/24/16 05/01/19 pen needle, diabetic [BD #100 11/23/17 05/01/19 Ultra-Fine Orig Pen Needle] amlodipine 5 mg tablet 5 mg PO DAILY #90 tab-cap 05/07/18 06/10/19 nitroglycerin 0.4 mg sublingual 0.4 mg SUBLINGUAL DIRECTED #25 05/27/18 06/10/19 tablet tab-cap ferrous sulfate 325 mg (65 mg 325 mg PO TID #90 tab-cap 10/30/18 06/10/19 iron) tablet rivaroxaban 20 mg tablet 20 mg PO DAILY #90 tab-cap 10/30/18 06/10/19 isosorbide mononitrate 60 mg 60 mg PO DAILY #90 tab-cap 01/23/19 06/10/19 tablet,extended release 24 hr albuterol sulfate 90 mcg/actuation 1 - 2 puff IH Q6H PRN #2 each 01/30/19 05/01/19 aerosol inhaler blood sugar diagnostic #100 strip 02/04/19 05/01/19 colchicine 0.6 mg tablet 0.6 mg PO DAILY #90 tab 03/17/19 06/10/19 insulin glargine 100 unit/mL (3 40 unit SUBCUT BID ml 05/01/19 06/10/19 mL) subcutaneous pen Healthy Eyes Lutein-Zeaxanthin 1 cap PO QAM 06/10/19 06/10/19 Oxygen 06/10/19 06/10/19 acetaminophen 650 mg PO Q4H PRN 06/10/19 06/10/19 allopurinol [Zyloprim] 300 mg PO BID 06/10/19 06/10/19 fluticasone propionate 1 spray INTRANASAL DAILY 06/10/19 06/10/19 furosemide 20 mg PO DAILY 06/10/19 06/10/19 furosemide 40 mg PO DAILY 06/10/19 06/10/19 magnesium chloride 64 mg PO BID 06/10/19 06/10/19 melatonin 6 mg PO HS 06/10/19 06/10/19 metformin 500 mg PO .QEVE 06/10/19 06/10/19 metformin [Glucophage] 1,000 mg PO DAILY 06/10/19 06/10/19 metoprolol succinate 50 mg PO DAILY 06/10/19 06/10/19 oxycodone 5 mg PO Q4H PRN 06/10/19 06/10/19 polyethylene glycol 3350 17 g PO DAILY 06/10/19 06/10/19 sennosides-docusate sodium [Senna 2 tab-cap PO BID 06/10/19 06/10/19 with Docusate Sodium] valsartan 320 mg PO DAILY 06/10/19 06/10/19 Xarelto 20 mg PO DAILY 06/19/19 06/19/19 cefpodoxime 200 mg PO BID 06/19/19 06/19/19 metoprolol succinate 06/19/19 tamsulosin 0.4 mg PO DAILY 06/19/19 06/19/19 Previous Rx's Medication Instructions Recorded amlodipine 5 mg tablet 5 mg PO DAILY #90 tab-cap 05/07/18 nitroglycerin 0.4 mg sublingual 0.4 mg SUBLINGUAL DIRECTED #25 05/27/18 tablet tab-cap ferrous sulfate 325 mg (65 mg 325 mg PO TID #90 tab-cap 10/30/18 iron) tablet rivaroxaban 20 mg tablet 20 mg PO DAILY #90 tab-cap 10/30/18 isosorbide mononitrate 60 mg 60 mg PO DAILY #90 tab-cap 01/23/19 tablet,extended release 24 hr albuterol sulfate 90 mcg/actuation 1 - 2 puff IH Q6H PRN #2 each 01/30/19 aerosol inhaler blood sugar diagnostic #100 strip 02/04/19 colchicine 0.6 mg tablet 0.6 mg PO DAILY #90 tab 03/17/19 Allergies Allergy/AdvReac Type Severity Reaction Status Date / Time ibuprofen AdvReac Intermediate BLEEDING Verified 06/10/19 17:24 ULCERS omeprazole AdvReac Intermediate n/v Verified 06/10/19 17:24 pantoprazole AdvReac Unknown unknown Verified 06/10/19 17:24 General Stated Complaint: GenMedical SATHISH: 4 Review of Systems <ABA Crain - Last Filed: 06/22/19 21:55> All systems reviewed & are unremarkable except as noted in HPI and below Constitutional Constitutional: Denies chills, Denies fatigue, Denies fever(s), Denies headache(s) and Denies malaise ENT Ears, Nose, Mouth, and Throat: Denies headache(s) Cardiovascular Cardiovascular: Denies chest pain, Denies diaphoresis, Denies syncope, Denies rapid heart rate, Denies lightheadedness, Denies palpitations, Denies dyspnea and Denies dyspnea on exertion Respiratory Respiratory: Denies cough, Denies dyspnea and Denies dyspnea on exertion Gastrointestinal Gastrointestinal: Denies abdominal pain, Denies nausea and Denies vomiting Neurologic Neurologic: Denies syncope and Denies headache(s) Endocrine Endocrine: Denies fatigue and Denies palpitations PFSH <ABA Crain - Last Filed: 06/22/19 21:55> Medical History RHODES (dyspnea on exertion) (Acute) Surgical History (Updated 11/28/18 @ 13:16 by Kristopher May) Procedure LEFT HEART CARDIAC CATH, 2007 Restenosis of LCX Stent placement INSERT 2 VASCULAR STENTS, 2005;LAD and [place]X. 12/24/[facility] [place] CAR[place]AC[place] Social History Smoking/Tobacco Use Status: Former Tobacco Use Second Hand Exposure: Yes Alcohol Intake: former Drug use: Never What type of physical activity do you participate in: sedentary lifestyle and restricted ROM & activity Do you feel safe at home: Yes Exam <ABA Crain - Last Filed: 06/22/19 21:55> Narrative Exam Narrative: CONST: Obese, otherwise healthy appearing patient, in no acute distress. Well hydrated. Alert and alert. HENMT: Head nomocephalic, normal to inspection. Atraumatic. Hearing grossly normal. NECK: Normal visual inspection. FROM. Trachea midline. No Midline tenderness. CHEST: Normal insepection of the chest. RESP: Normal respiratory effort. Speaking full sentences. No cough. No audible wheezing. No retractions. Breath sounds are clear and full bilaterally, equal. No wheezing, rhonchi or rales. CARDIO: No JVD. Murmur present, regular rate and rhythm. MUSCULOSKELETAL: No distal edema this time. SKIN: Normal. Dry. No rashes. NEURO: Alert and awake. Speech clear. PSYCH: Normal affect. Cooperative. Course <ABA Crain - Last Filed: 06/22/19 21:55> Vital Signs Vital signs: Vital Signs Temperature 36.6 C 06/19/19 21:07 Pulse 92 H 06/19/19 21:07 Respiratory Rate 06/19/19 21:07 Blood Pressure 120/75 06/19/19 21:07 Pulse Oximetry 94 L 06/19/19 21:07 Temperature 36.6 C 06/19/19 21:07 Temperature Source Skin 06/19/19 21:07 Pulse 75 06/19/19 21:41 Respiratory Rate 20 06/19/19 21:41 Respiratory Effort 06/19/19 21:07 Blood Pressure 120/75 06/19/19 21:07 Pulse Oximetry 94 L 06/19/19 21:41 Oxygen Delivery Method Room Air 06/19/19 21:07 Oxygen Flow Rate 0 06/19/19 21:07 Fraction of Inspired Oxygen (FIO2) 21 06/19/19 21:41 Pain Level 0 06/19/19 21:07 Sign Out <ABA Crain - Last Filed: 06/22/19 21:55> Sign Out Data: Sign Out Comment: Signed out pending discharged back to [facility] in the morning. Last updated by Linda Bower PA at 06/19/19 23:28
--- NOTE | 2019-06-19 23:00 | NUR.NOTE ---
Nursing Note: Patient resting, eyes closed. C PAP in place. Oxygenation 95%.
[2019-06-19 23:02] VITALS: BP 113/60; PULSE 75; O2SAT 93
[2019-06-20] VITALS (15 sets, daily range): BP systolic 110–152; BP diastolic 52–92; PULSE 77–96; RESP 20; O2SAT 89–97
--- NOTE | 2019-06-20 01:32 | NUR.NOTE ---
Nursing Note: No status change. In bed, eyes closes. C PAP in place.
--- NOTE | 2019-06-20 02:11 | NUR.NOTE ---
Nursing Note: 0200: Patient moved from room 5 to room 6 and placed on larger bed for patient comfort. Patient tolerated well. Sats remain at 95% on C PAP. No c/o or requests at this time.
--- NOTE | 2019-06-20 03:03 | NUR.NOTE ---
Nursing Note: Pt continues to lay in bed, eyes closed. No status change noted.
== END 2019-06-20 06:58 | disposition skilled nursing facility (03) ==
PROVIDERS: Emergency Provider Emergency Medicine; PCP Family Medicine
DX: G47.33 Obstructive sleep apnea (adult) (pediatric) (principal); R09.02 Hypoxemia; E11.9 Type 2 diabetes mellitus without complications; Z79.4 Long term (current) use of insulin; I10 Essential (primary) hypertension; I48.91 Unspecified atrial fibrillation; Z87.891 Personal history of nicotine dependence
CPT/HCPCS: 99285; 99283

== ENCOUNTER 2019-06-21 21:20 | Outpatient (REF) | payer MEDICARE, MEDICAID, SELFPAY ==
[2019-06-21 22:04] LABS: HCT 35.1 % (40.0-50.0); HGB 10.9 g/dL (13.5-17.5); Mean Corp. HGB Concentration 31.1 g/dL (32.0-36.0); Mean Corpuscular Hemoglobin 27.7 pg (27.0-33.0); Mean Corpuscular Volume 89.1 fL (80-95); Mean Platelet Volume 10.1 fL (8.0-11.0); Platelet Count 328 x1000/uL (130-400); RBC 3.94 m/cumm (4.50-6.00); RBC Distribution Width 17.5 % (11.8-14.1)
[2019-06-21 22:11] LABS: Anion Gap 9.1 mmol/L (3-11); BUN 23 mg/dL (7-18); CO2 26.9 mmol/L (21.0-32.0); CREATININE 1.35 mg/dL (0.70-1.30); Calcium 8.4 mg/dL (8.5-10.1); Chloride 104 mmol/L (98-107); Estimated GFR 51.52 (mL/min/1.73m2); Glucose 137 mg/dL (74-106); Potassium 4.1 mmol/L (3.5-5.1); Sodium 140 mmol/L (136-145)
== END 2019-06-21 21:40 ==
LOC: LBN 21:20
PROVIDERS: PCP Family Medicine; Visit Provider Family Medicine
DX: N18.3 Chronic kidney disease, stage 3 (moderate) (principal); D64.9 Anemia, unspecified
CPT/HCPCS: 80048; 85027

== ENCOUNTER 2019-06-24 18:32 | Outpatient (REF) | payer MEDICARE, MEDICAID, SELFPAY ==
[2019-06-24 17:52] LABS: Anion Gap 11.9 mmol/L (3-11); BUN 31 mg/dL (7-18); CO2 26.1 mmol/L (21.0-32.0); CREATININE 1.58 mg/dL (0.70-1.30); Calcium 8.4 mg/dL (8.5-10.1); Chloride 106 mmol/L (98-107); Estimated GFR 42.97 (mL/min/1.73m2); Glucose 183 mg/dL (74-106); LDH 199 U/L (85-227); Potassium 4.9 mmol/L (3.5-5.1); Sodium 144 mmol/L (136-145)
[2019-06-24 18:10] LABS: ESR 88 mm/hr (1-20)
== END 2019-06-24 18:52 ==
LOC: LBN 18:32
PROVIDERS: PCP Family Medicine; Visit Provider Family Medicine
DX: I35.0 Nonrheumatic aortic (valve) stenosis (principal); M14.671 Charcot's joint, right ankle and foot; Z98.1 Arthrodesis status
CPT/HCPCS: 80048; 85652; 83615; 86140

== ENCOUNTER 2019-06-27 02:45 | Outpatient (CLI) | payer MEDICARE, MEDICAID, SELFPAY ==
[2019-06-30 10:46] LABS: C Difficile PCR Positive (Negative)
== END 2019-06-27 03:05 ==
PROVIDERS: PCP Family Medicine; Visit Provider Family Medicine
DX: R19.7 Diarrhea, unspecified (principal)
CPT/HCPCS: 36415; 87324; 87798

== ENCOUNTER 2019-07-01 09:45 | Outpatient (CLI) | payer MEDICARE, SELFPAY ==
[2019-07-01 10:49] LABS: Abs Immature Grans 0.23 k/cumm (0.0-0.09); Absolute Basophil Count 0.06 k/cumm (0.0-0.2); Absolute Eosinophil Count 0.28 k/cumm (0.0-0.7); Absolute Lymphocyte Count 1.65 k/cumm (1.2-3.4); Absolute Monocyte Count 0.84 k/cumm (0.11-0.7); Basophils % 0.6; Eosinophils % 2.7; HGB 8.5 g/dL (13.5-17.5); Immature Grans % 2.2 %; Lymphocytes % 15.9; Mean Corp. HGB Concentration 30.4 g/dL (32.0-36.0); Mean Corpuscular Hemoglobin 26.6 pg (27.0-33.0); Mean Corpuscular Volume 87.5 fL (80-95); Mean Platelet Volume 10.1 fL (8.0-11.0); Monocytes % 8.1; Neutrophils % 70.5; RBC Distribution Width 16.5 % (11.8-14.1); White Blood Cell Count 10.36 k/cumm (4.4-10.8)
[2019-07-01 11:18] LABS: Anion Gap 12.1 mmol/L (3-11); CO2 20.9 mmol/L (21.0-32.0); CREATININE 1.75 mg/dL (0.70-1.30); Calcium 8.6 mg/dL (8.5-10.1); Chloride 102 mmol/L (98-107); Estimated GFR 38.19 (mL/min/1.73m2); Glucose 72 mg/dL (74-106); Potassium 5.2 mmol/L (3.5-5.1); Sodium 135 mmol/L (136-145)
[2019-07-01 11:19] LABS: Diff Comment Agrees w/ Instrument; Hypochromasia 2+; Platelet Count 509 x1000/uL (130-400)
[2019-07-01 11:20] LABS: Poikilocytes 2+; Polychromasia Present
[2019-07-01 11:25] LABS: BUN 91 mg/dL (7-18)
== END 2019-07-01 10:05 ==
PROVIDERS: PCP Family Medicine; Visit Provider Nurse Practitioner Adult Health
DX: J18.1 Lobar pneumonia, unspecified organism (principal); N18.3 Chronic kidney disease, stage 3 (moderate); D64.9 Anemia, unspecified
CPT/HCPCS: 36415; 80048; 85025

== ENCOUNTER 2019-07-02 09:37 | Inpatient (IN) | payer MEDICARE, MEDICAID, SELFPAY ==
[2019-07-02] VITALS (129 sets, daily range): BP systolic 47–139; BP diastolic 11–97; PULSE 0–190; RESP 0–42; TEMP 36.4–37.1; O2SAT 87–100
[2019-07-02] MEDS: Lactated Ringers 1,000 ML 1000 ML IV (10:00)
--- NOTE | 2019-07-02 10:05 | ED.GENADUL_ITS ---
Discharge Plan Discharge Details Chief Complaint: GenMedical Admit Date/Time: 07/02/19 11:38 Admit Provider: Uriel Maynard Attending Provider: Uriel Maynard Primary Care Provider: Therese Jeffrey ED Provider: Alfredito Augustin Discharge Data Discharge Date/Time-TO BE ENTERED AT DEPARTURE: 07/02/19 13:11 Medical Decision Making [age]M with multiple medical problems referred here from his nursing care facility for altered mentation and hypotension. Patient has had ongoing diarrhea and was diagnosed yesterday with C. difficile colitis. Has been started on oral MAC vancomycin. On arrival, was initially altered with cyanotic upper extremities and measured hypotension. Otherwise nonfocal exam. Evaluation included nondiagnostic wide-complex EKG, normal portable chest x-ray, labs diagnostic for anemia (hemoglobin = 7.0) and an equivocal urine for having an indwelling Garcia catheter. Gradual clinical improvement after receiving IV crystalloid and PRBCs. Discussed case with internal medicine hospitalist, Dr. Albarado. Admitted to the ICU for further evaluation management.. Medical Records Medical records reviewed: Yes I reviewed the patient's medical records. Imaging Data Radiologic Study: Imaging: X-Ray (Portable chest x-ray) My impression: Bibasilar atelectasis. Interpreted independently contemporaneously by myself. Radiologist's impression: Same Lab Data Lab results reviewed: Yes I reviewed the patient's lab results. Lab results narrative: Lab Results 07/02/19 07/02/19 07/02/19 Range/Units 09:47 10:05 10:05 WBC (4.4-10.8) k/cumm RBC (4.50-6.00) m/cumm Hgb (13.5-17.5) g/dL Hct (40.0-50.0) % MCV (80-95) fL MCH (27.0-33.0) pg MCHC (32.0-36.0) g/dL RDW (11.8-14.1) % Plt Count (130-400) x1000/uL MPV (8.0-11.0) fL Immature Gran % Neutrophils % Lymphocytes % Monocytes % Eosinophils % Basophils % Metamyelocytes % % Absolute Neutrophils (1.2-6.7) k/cumm Absolute Lymphocytes (1.2-3.4) k/cumm Absolute Monocytes (0.11-0.7) k/cumm Absolute Eosinophils (0.0-0.7) k/cumm Absolute Basophils (0.0-0.2) k/cumm Differential Comment RBC Morphology Polychromasia Hypochromasia Poikilocytosis Anisocytosis Microcytosis Macrocytosis Sodium 136 (136-145) mmol/L Potassium 4.9 (3.5-5.1) mmol/L Chloride 103 (98-107) mmol/L Carbon Dioxide 20.0 L (21.0-32.0) mmol/L Anion Gap 13.0 H (3-11) mmol/L BUN 113 H* D (7-18) mg/dL Creatinine 1.92 H (0.70-1.30) mg/dL Estimated GFR/1.73 m2 34.31 (mL/min/1.73m2) Glucose 102 (74-106) mg/dL Lactate 1.2 (0.6-1.4) mmol/L Calcium 8.3 L (8.5-10.1) mg/dL Magnesium 1.8 (1.8-2.4) mg/dL Total Bilirubin 0.3 (0.2-1.0) mg/dL AST 20 (15-37) U/L ALT 30 (16-63) U/L Alkaline Phosphatase 115 (46-116) U/L Troponin I < 0.05 (<0.06) ng/Ml Total Protein 5.9 L (6.4-8.2) g/dL Albumin 2.4 L (3.4-5.0) g/dL Urine Color (Yellow) Urine Clarity (Clear) Urine pH (5-8) Ur Specific [place] (1.005-1.025) Urine Protein (Negative) mg/dL Urine Ketones (Negative) mg/dL Urine Blood (Negative) Urine Nitrite (Negative) Urine Bilirubin (Negative) Urine Urobilinogen (Up TO 0.2) EU/dL Ur Leukocyte Esterase (Negative) Urine RBC (0-2) HPF Urine WBC (0-5) HPF Ur Epithelial Cells (Negative) HPF Urine Crystals (Negative) HPF Urine Bacteria (Negative) HPF Urine Casts (Negative) LPF Urine Mucus (Negative) Ur Culture Indicated? Urine Glucose (Negative) mg/dL Patient ABO/Rh O Positive Antibody Screen Negative Crossmatch See Detail 07/02/19 07/02/19 Range/Units 10:05 10:49 WBC 11.76 H (4.4-10.8) k/cumm RBC 2.56 L (4.50-6.00) m/cumm Hgb 7.0 L (13.5-17.5) g/dL Hct 22.3 L D (40.0-50.0) % MCV 87.1 (80-95) fL MCH 27.3 (27.0-33.0) pg MCHC 31.4 L (32.0-36.0) g/dL RDW 16.5 H (11.8-14.1) % Plt Count 531 H (130-400) x1000/uL MPV 9.9 (8.0-11.0) fL Immature Gran % See Differential Neutrophils % 74.0 Lymphocytes % 17.0 Monocytes % 7.0 Eosinophils % 1.0 Basophils % 0.0 Metamyelocytes % 1.0 % Absolute Neutrophils 8.70 H (1.2-6.7) k/cumm Absolute Lymphocytes 2.00 (1.2-3.4) k/cumm Absolute Monocytes 0.82 H (0.11-0.7) k/cumm Absolute Eosinophils 0.12 (0.0-0.7) k/cumm Absolute Basophils 0.00 (0.0-0.2) k/cumm Differential Comment Manual differential RBC Morphology See below Polychromasia Present Hypochromasia 2+ Poikilocytosis 2+ Anisocytosis 2+ Microcytosis 1+ Macrocytosis 1+ Sodium (136-145) mmol/L Potassium (3.5-5.1) mmol/L Chloride (98-107) mmol/L Carbon Dioxide (21.0-32.0) mmol/L Anion Gap (3-11) mmol/L BUN (7-18) mg/dL Creatinine (0.70-1.30) mg/dL Estimated GFR/1.73 m2 (mL/min/1.73m2) Glucose (74-106) mg/dL Lactate (0.6-1.4) mmol/L Calcium (8.5-10.1) mg/dL Magnesium (1.8-2.4) mg/dL Total Bilirubin (0.2-1.0) mg/dL AST (15-37) U/L ALT (16-63) U/L Alkaline Phosphatase (46-116) U/L Troponin I (<0.06) ng/Ml Total Protein (6.4-8.2) g/dL Albumin (3.4-5.0) g/dL Urine Color Yellow (Yellow) Urine Clarity Clear (Clear) Urine pH 5.5 (5-8) Ur Specific [place] >= 1.030 H (1.005-1.025) Urine Protein >=300 H (Negative) mg/dL Urine Ketones Negative (Negative) mg/dL Urine Blood Moderate H (Negative) Urine Nitrite Negative (Negative) Urine Bilirubin Small H (Negative) Urine Urobilinogen 0.2 (Up TO 0.2) EU/dL Ur Leukocyte Esterase Trace H (Negative) Urine RBC 3-5 H (0-2) HPF Urine WBC 20-50 H (0-5) HPF Ur Epithelial Cells Rare (Negative) HPF Urine Crystals Few amorphous (Negative) HPF Urine Bacteria Moderate (Negative) HPF Urine Casts 3-5 coarse granular (Negative) LPF Urine Mucus Negative (Negative) Ur Culture Indicated? Yes Urine Glucose Negative (Negative) mg/dL Patient ABO/Rh Antibody Screen Crossmatch HPI 73-year-old gent with a past medical history which includes diabetes, and recent diagnosis of C. difficile. Was started yesterday oral vancomycin as his nursing care facility. Today was found to be altered with pallor and hypotension. No history of traumatic injury according to his caregivers. On arrival here, Mr. Thorpe is unable to answer questions. He is pale with hypotension, mottled extre mities, and otherwise seems in no distress. General Date/Time Provider Initiated Documentation: 07/02/19 09:48 . Related Data Home Medications Medication Instructions Recorded Confirmed lancets [OneTouch UltraSoft #180 ea 09/28/14 05/01/19 Lancets] aspirin [Aspirin Low-Strength] 81 mg PO DAILY #30 tab-cap 12/29/14 07/02/19 BD Regular Bevel [place] #100 ea 08/24/16 05/01/19 pen needle, diabetic [BD #100 11/23/17 05/01/19 Ultra-Fine Orig Pen Needle] amlodipine 5 mg tablet 5 mg PO DAILY #90 tab-cap 05/07/18 06/10/19 nitroglycerin 0.4 mg sublingual 0.4 mg SUBLINGUAL DIRECTED #25 05/27/18 07/02/19 tablet tab-cap ferrous sulfate 325 mg (65 mg 325 mg PO TID #90 tab-cap 10/30/18 07/02/19 iron) tablet rivaroxaban 20 mg tablet 20 mg PO DAILY #90 tab-cap 10/30/18 07/02/19 isosorbide mononitrate 60 mg 60 mg PO DAILY #90 tab-cap 01/23/19 07/02/19 tablet,extended release 24 hr albuterol sulfate 90 mcg/actuation 1 - 2 puff IH Q6H PRN #2 each 01/30/19 05/01/19 aerosol inhaler blood sugar diagnostic #100 strip 02/04/19 05/01/19 colchicine 0.6 mg tablet 0.6 mg PO DAILY #90 tab 03/17/19 07/02/19 insulin glargine 100 unit/mL (3 40 unit SUBCUT BID ml 05/01/19 07/02/19 mL) subcutaneous pen Healthy Eyes Lutein-Zeaxanthin 1 cap PO QAM 06/10/19 06/10/19 Oxygen 06/10/19 06/10/19 acetaminophen 650 mg PO Q4H PRN 06/10/19 07/02/19 allopurinol [Zyloprim] 450 mg PO BID 06/10/19 07/02/19 fluticasone propionate 1 spray INTRANASAL DAILY 06/10/19 06/10/19 furosemide 20 mg PO DAILY 06/10/19 06/10/19 furosemide 40 mg PO DAILY 06/10/19 07/02/19 magnesium chloride 64 mg PO BID 06/10/19 07/02/19 melatonin 6 mg PO HS 06/10/19 06/10/19 metformin 1,000 mg PO BID 06/10/19 07/02/19 metformin [Glucophage] 1,000 mg PO BID 06/10/19 07/02/19 metoprolol succinate 50 mg PO DAILY 06/10/19 06/10/19 oxycodone 5 mg PO Q4H PRN 06/10/19 06/10/19 polyethylene glycol 3350 17 g PO DAILY 06/10/19 07/02/19 sennosides-docusate sodium [Senna 2 tab-cap PO BID 06/10/19 07/02/19 with Docusate Sodium] valsartan 320 mg PO DAILY 06/10/19 07/02/19 cefpodoxime 200 mg PO BID 06/19/19 06/19/19 metoprolol succinate 200 mg PO DAILY 06/19/19 07/02/19 tamsulosin 0.4 mg PO DAILY 06/19/19 07/02/19 acidophilus-pectin, citrus 1 cap PO DAILY 07/02/19 07/02/19 [Acidophilus Probiotic] ascorbic acid (vitamin C) [Vitamin 500 mg PO BID 07/02/19 07/02/19 C] magnesium hydroxide [Milk of 30 ml PO PRN PRN 07/02/19 07/02/19 Magnesia] miconazole nitrate [Micatin] 1 applic TOPICAL BID 07/02/19 07/02/19 multivitamin with minerals 1 tab PO DAILY 07/02/19 07/02/19 [Multiple Vitamin-Minerals] [id number]-vit K 1 tab PO DAILY 07/02/19 07/02/19 [Multi-Day Plus Minerals] nitroglycerin 0.4 mg SUBLINGUAL PRN PRN 07/02/19 07/02/19 sennosides-docusate sodium 2 tab PO BID 07/02/19 07/02/19 tamsulosin 0.4 mg PO DAILY 07/02/19 07/02/19 valsartan 320 mg PO DAILY 07/02/19 07/02/19 vancomycin 125 mg PO QID 07/02/19 07/02/19 vancomycin 125 mg PO QID 07/02/19 07/02/19 Previous Rx's Medication Instructions Recorded amlodipine 5 mg tablet 5 mg PO DAILY #90 tab-cap 05/07/18 nitroglycerin 0.4 mg sublingual 0.4 mg SUBLINGUAL DIRECTED #25 05/27/18 tablet tab-cap ferrous sulfate 325 mg (65 mg 325 mg PO TID #90 tab-cap 10/30/18 iron) tablet rivaroxaban 20 mg tablet 20 mg PO DAILY #90 tab-cap 10/30/18 isosorbide mononitrate 60 mg 60 mg PO DAILY #90 tab-cap 01/23/19 tablet,extended release 24 hr albuterol sulfate 90 mcg/actuation 1 - 2 puff IH Q6H PRN #2 each 01/30/19 aerosol inhaler blood sugar diagnostic #100 strip 02/04/19 colchicine 0.6 mg tablet 0.6 mg PO DAILY #90 tab 03/17/19 Allergies Allergy/AdvReac Type Severity Reaction Status Date / Time ibuprofen AdvReac Intermediate BLEEDING Verified 07/02/19 10:25 ULCERS omeprazole AdvReac Intermediate n/v Verified 07/02/19 10:25 pantoprazole AdvReac Unknown unknown Verified 07/02/19 10:25 General Stated Complaint: GenMedical SATHISH: 2 Review of Systems Unobtainable due to mental condition [facility] Medical History RHODES (dyspnea on exertion) (Acute) Surgical History Procedure LEFT HEART CARDIAC CATH, 2007 Restenosis of LCX Stent placement INSERT 2 VASCULAR STENTS, 2005;[place] and [place]. [place] [facility] [place] CAR[place]AC[place] Social History Smoking/Tobacco Use Status: Former Tobacco Use Second Hand Exposure: Yes Alcohol Intake: former Drug use: Never What type of physical activity do you participate in: sedentary lifestyle and restricted ROM & activity Additional Social history: pt at [facility] H and R Exam Narrative Exam Narrative: Nursing note and vital signs have been reviewed and noted. GENERAL: alert, active, no acute distress, well -hydrated, well-nourished HEENT: atraumatic/normocephalic, PERRLA, EOMI, conjunctiva clear, external ears/canals normal, nasal mucosa normal NECK: supple, full range of motion, no mass, normal lymphadenopathy, no thyromegaly CARDIOVASCULAR: RRR, no murmurs, nl pulses, no edema PULMONARY: nl effort, no audible wheezing or stridor, nl breath sounds with no focal deficit. no chest wall tenderness ABDOMEN: soft, non-tender, non-distended, no mass, no organomegaly EXTREMITY: normal muscle tone, all joints with FROM, no deformity or tenderness SKIN: no exanthem appreciated NEURO: Moving all extremities PSYCH: Opens eyes to commands otherwise not interactive, Course Vital Signs Vital signs: Vital Signs Temperature 97.9 F 07/02/19 09:39 Pulse 99 H 07/02/19 09:39 Respiratory Rate 14 07/02/19 09:39 Blood Pressure 96/77 L 07/02/19 09:39 Pulse Oximetry 94 L 07/02/19 09:39 Temperature 97.9 F 07/02/19 09:39 Temperature Source Temporal Artery Scan 07/02/19 09:39 Pulse 99 H 07/02/19 09:39 Respiratory Rate 14 07/02/19 09:39 Blood Pressure 96/77 L 07/02/19 09:39 Blood Pressure Position Supine 07/02/19 09:39 Pulse Oximetry 94 L 07/02/19 09:39 Oxygen Delivery Method Nasal Cannula 07/02/19 09:39 Oxygen Flow Rate 2 07/02/19 09:39
[2019-07-02 10:19] LABS: Lactate 1.2 mmol/L (0.6-1.4)
[2019-07-02 10:26] LABS: Abs Immature Grans 0.16 k/cumm (0.0-0.09); HCT 22.3 % (40.0-50.0); Mean Corp. HGB Concentration 31.4 g/dL (32.0-36.0); Mean Corpuscular Hemoglobin 27.3 pg (27.0-33.0); Mean Corpuscular Volume 87.1 fL (80-95); Mean Platelet Volume 9.9 fL (8.0-11.0); Platelet Count 531 x1000/uL (130-400); RBC 2.56 m/cumm (4.50-6.00); RBC Distribution Width 16.5 % (11.8-14.1); White Blood Cell Count 11.76 k/cumm (4.4-10.8)
[2019-07-02 10:38] LABS: ALT 30 U/L (16-63); AST 20 U/L (15-37); Albumin 2.4 g/dL (3.4-5.0); Alkaline Phosphatase 115 U/L (46-116); Bilirubin, Total 0.3 mg/dL (0.2-1.0); CREATININE 1.92 mg/dL (0.70-1.30); Calcium 8.3 mg/dL (8.5-10.1); Chloride 103 mmol/L (98-107); Estimated GFR 34.31 (mL/min/1.73m2); Glucose 102 mg/dL (74-106); Magnesium 1.8 mg/dL (1.8-2.4); Potassium 4.9 mmol/L (3.5-5.1); Sodium 136 mmol/L (136-145); Total Protein 5.9 g/dL (6.4-8.2)
[2019-07-02 10:43] LABS: BUN 113 mg/dL (7-18); Troponin I < 0.05 ng/Ml (<0.06)
[2019-07-02 10:46] LABS: Absolute Eosinophil Count 0.12 k/cumm (0.0-0.7); Absolute Monocyte Count 0.82 k/cumm (0.11-0.7); Anisocytosis 2+; Diff Comment Manual Differential; Hypochromasia 2+; Macrocytosis 1+; Microcytosis 1+
[2019-07-02 10:47] LABS: Poikilocytes 2+; Polychromasia Present
[2019-07-02 11:20] LABS: Bilirubin Small (Negative); Blood Moderate (Negative); Clarity Clear (Clear); Glucose Negative (Negative); Ketones Negative (Negative); Leukocyte Esterase Trace (Negative); Nitrite Negative (Negative); Specific Gravity >= 1.030 (1.005-1.025); Urobilinogen 0.2 EU/dL (Up TO 0.2); pH 5.5 (5-8)
[2019-07-02 11:36] LABS: Bacteria Moderate HPF (Negative); Epithelial Cells Rare HPF (Negative); WBC 20-50 HPF (0-5)
[2019-07-02 11:37] LABS: Casts 3-5 Coarse Granular LPF (Negative); Crystals Few Amorphous HPF (Negative); Mucus Negative (Negative)
[2019-07-02 11:38] LABS: C & S Indicated? Yes
[2019-07-02] MEDS: ACETAMINOPHEN 1,000 MG/100 ML BTL 400 MG (12:05)
--- NOTE | 2019-07-02 12:44 | DI.RAD_ITS ---
EXAM: XR PORTABLE CHEST AP INDICATION: altered. COMPARISON: XR CHEST 2V PA LATERAL from 06/23/2019 TECHNIQUE: 2D digital imaging was performed. FINDINGS: The heart size is within normal limits given the AP projection. There is atherosclerosis of the thor acic aorta. Plate atelectatic changes are seen in the bases. No focal consolidations are seen. No effusions or pneumothoraces. Degenerative changes are seen in the shoulders. IMPRESSION: Basilar atelectasis. No focal consolidation.
[2019-07-02] MEDS: Normal Saline 1,000 ML 250 ML IV (13:47)
[2019-07-02] MEDS: metroNIDAZOLE 500 MG/100 ML BAG 100 MG IVPB (14:02)
--- NOTE | 2019-07-02 14:14 | HPE_ITS ---
Date of service: 07/02/19 Time of Service: 14:15 Assessment and Plan Assessment and plan (1) Hypotension due to hypovolemia: Status: Acute Assessment and plan: Secondary to acute GI bleeding. It is unclear as to the source of his GI bleeding but given his markedly elevated BUN out of proportion to his creatinine in the dark maroon stools I suspect upper GI bleeding. I started him on a PPI and we will continue to transfuse him with packed red cells monitoring serial hemograms. His rivaroxaban was reversed with Andexxa. (2) GI bleeding: Status: Acute Assessment and plan: As above. Qualifiers: GI bleed type/associated pathology: unspecified gastrointestinal hemorrhage type Qualified Code(s): K92.2 - Gastrointestinal hemorrhage, unspecified (3) C. difficile colitis: Status: Acute Assessment and plan: We will treat his C. difficile colitis with IV Flagyl. Once he is able to take p.o. we will add oral Vancocin as well. (4) Acute on chronic kidney failure: Status: Acute Assessment and plan: Multifactorial. His chronic renal insufficiency is probably secondary to his diabetes mellitus. The acute renal insufficiency is due to hypovolemia and prerenal azotemia. Qualifiers: Acute renal failure type: with acute tubular necrosis Chronic kidney disease stage: stage 3 (moderate) Qualified Code(s): N17.0 - Acute kidney failure with tubular necrosis; N18.3 - Chronic kidney disease, stage 3 (moderat e) (5) Aortic stenosis: Status: Chronic Assessment and plan: Per his last transthoracic echocardiogram performed here at [facility] from November 12, 2017 he had normal left ventricular systolic function which was at the lower limits of normal at 50 to 55%. He has LVH with asymmetric hypertrophy of the septum and he has moderate to severe aortic stenosis with a peak velocity of 2.8 m/s and a VTI ratio of his left ventricular outflow tract aortic valve of 0.32 with a calculated valve area of 1 cm?. He has mitral annular calcification and normal right ventricular size and right ventricular systolic function. Qualifiers: Cardiac valve disease etiology: etiology unspecified Qualified Code(s): I35.0 - Nonrheumatic aortic (valve) stenosis (6) GERD (gastroesophageal reflux disease): Status: Acute Assessment and plan: We will treat with IV Protonix Qualifiers: Esophagitis presence: esophagitis presence not specified Qualified Code(s): K21.9 - Gastro-esophageal reflux disease without esophagitis (7) Coronary artery disease: Status: Acute Assessment and plan: Patient has known coronary artery disease with previous coronary stents. There is been no recent stress MPI to evaluate for residual ischemia however his troponins so far been negative x2 sets despite significant hypovolemia and hypotension Qualifiers: Associated angina: without angina Coronary Disease-Associated Artery/Lesion type: [place] artery [place] vs. transplanted heart: [place] heart Qualified Code(s): I25.10 - Atherosclerotic heart disease of [place] coronary artery without angina pectoris (8) Atrial fibrillation: Status: Acute Assessment and plan: His atrial fibrillation has been treated with metoprolol for rate control and rivaroxaban for anticoagulation. Because of the severity of his GI bleeding I had to reverse his rivaroxaban. Because of his hypotension I have not given any IV beta-blockers for his tachycardia but hopefully with correction of his hypotension his atrial fibrillation rate will come under better control. Once his blood pressure stabilized and he is able to tolerate p.o. I will resume his metoprolol Qualifiers: Atrial fibrillation type: longstanding persistent Qualified Code(s): I48.11 - Longstanding persistent atrial fibrillation (9) Diabetes mellitus: Status: Acute Assessment and plan: While he is n.p.o. we will monitor his blood sugars every 6 hours and cover with sliding scale NovoLog. Qualifiers: Diabetes mellitus complication detail: with neuropathic arthropathy Diabetes mellitus complication status: with diabetic arthropathy Diabetes mellitus alf insulin use: with alf use Diabetes mellitus type: type 2 Qualified Code(s): E11.610 - Type 2 diabetes mellitus with diabetic neuropathic arthropathy; Z79.4 - middle or intermediate school principal (current) use of insulin (10) Chronic anticoagulation: Status: Acute Assessment and plan: Rivaroxaban has been reversed with Andexxa as noted above. (11) Obstructive sleep apnea syndrome: Status: Acute Assessment and plan: Patient CPAP has been brought in and he will be placed on CPAP while asleep. If he develops acute respiratory failure from volume replacement then he will be placed on CPAP or BiPAP. Because he is indicated does not want resuscitation in the event of cardiopulmonary failure he will not be intubated in the event of respiratory failure History of Present Illness History of Present Illness Chief Complaint: Hypotension, acute mental status change, diarrhea, anemia Narrative: 73-year-old male with past medical history significant for coronary artery disease (stents LAD/circuflex [id number]), insulin-dependent diabetes, hypertension, CKD, hyperlipidemia, stroke, and moderate to severe aortic stenosis, Chronic atrial fibrillation for which he is chronically anticoagulated with rivaroxaban Patient was in [facility] after having been hospitalized at [facility] from June 10, 2019 through June 19, 2019 for acute hypoxemic respiratory failure secondary to volume overload due to acute on chronic heart failure with preserved ejection fraction, hypervolemic hyponatremia, acute kidney injury multifactorial including obstructive and cardiorenal as well as sepsis due to pneumonia. Patient was recently diagnosed with C. difficile colitis and started on oral vancomycin. However he was transferred from [facility] to the emergency room today because of hypotension and altered mental status. On arrival he was found to be cyanotic and hypotensive with systolic blood pressures in the low 80s diastolic pressures in the 40s. His BP later dropped to as low as 62/49 and 65/47. He was found to be profoundly anemic with a hemoglobin of 7 g. It appears that he has been getting progressively anemic since he was discharged from [facility] on 06/19/2019 when his hemoglobin was 10.5 gm and more recently he was 8.5 gm yesterday and today is down to 7.0 gm. Per ER attending, patient was not having any overt GI bleeding however after arrival to the ICU the patient had maroon liquid BM and has had continued dark red rectal bleeding. Patient continued to have hypotension w/ SBP in the 70's to 80's despite having received 1 L of LR and 1 unit of PRBC. Based on his acute GI bleeding and hypotension, I decided to reverse his Rivaroxaban w/ Andexxa (factor Xa) and continued to transfuse him PRBC. I orderd two more units of PRBC to be given. I performed a point of care (POCUS) exam and found his LV and RV function to be grossly normal although not hyperdynamic as I would expect and his RV cavity was not dilated and his SVC and IVC were completely collapsiing w/ inspiration suggesting severe volume loss. Patient was given saline iv wide open pending the receipt of further PRBC. Vasopressors were not used in resuscitation. I have ordered a GI nuclear bleeding scan and begun him on protonix iv (he reportedly has an allergy but the reaction is nausea and vomiting therefore not a true allergy). He will get a 3rd unit of PRBC and receive lasix w/ this and we will monitor serial hemogram through the night. I have ordered repeat troponin level. Review of Systems Unobtainable due to mental status [facility] Medical History (Updated 07/02/19 @ 20:22 by Uriel Maynard) Atrial fibrillation (Acute) repeat Holter: So//nocturnal HR 45-50/very frequent pvc versus aberrantly conducted beat Blood coagulation disorder (Acute) Factor V Leiden mutation Carotid stenosis, right (Inactive 10/14/17) re-eval.[facility] [place] doppler (x ) ; no change/ widely patent internal carotid artery stent - fup in one year Carotid stent occlusion (Inactive 12/31/14) [facility] - right carotid stent placement Charcot's arthropathy associated with type 2 diabetes mellitus (Inactive) Chronic anticoagulation (Acute) 1997: Pulmonary Embolism - [facility]:[place] filter DVT x4 : left leg started on Xarelto post stroke - Chronic rhinitis (Inactive 03/23/16) Coronary artery disease (Acute) LAD/circonflex stent 2007 Diabetes mellitus (Acute 01/01/13) no db retinopathy (05/2017) [facility] Dr. Richa Lerner/ nephropathy ( >500 microalb/creat) : last Endo. [facility]: increase basal and prandial RHODES (dyspnea on exertion) (Acute) Essential hypertension (Acute 04/04/13) ophtalmo. 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 12/24/14 [facility]; RIGHT CAROTID STENT PLACEMENT Social History Smoking/Tobacco Use Status: Former Tobacco Use Second Hand Exposure: Yes Alcohol Intake: former Drug use: Never What type of physical activity do you participate in: sedentary lifestyle and restricted ROM & activity Additional Social history: pt at [facility] Home Medications and Allergies Home Medications Medication Instructions Recorded Confirmed Type One Touch Ultra 1 ea MISCELLANEOUS BID #180 ea 01/04/14 02/11/19 Clinic lancets [OneTouch UltraSoft #180 ea 09/28/14 05/01/19 History Lancets] aspirin [Aspirin Low-Strength] 81 mg PO DAILY #30 tab-cap 12/29/14 07/02/19 History BD Regular Bevel [place] #100 ea 08/24/16 05/01/19 History pen needle, diabetic [BD #100 11/23/17 05/01/19 History Ultra-Fine Orig Pen Needle] amlodipine 5 mg tablet 5 mg PO DAILY #90 tab-cap 05/07/18 06/10/19 Rx nitroglycerin 0.4 mg sublingual 0.4 mg SUBLINGUAL DIRECTED #25 05/27/18 07/02/19 Rx tablet tab-cap ferrous sulfate 325 mg (65 mg 325 mg PO TID #90 tab-cap 10/30/18 07/02/19 Rx iron) tablet rivaroxaban 20 mg tablet 20 mg PO DAILY #90 tab-cap 10/30/18 07/02/19 Rx isosorbide mononitrate 60 mg 60 mg PO DAILY #90 tab-cap 01/23/19 07/02/19 Rx tablet,extended release 24 hr albuterol sulfate 90 mcg/actuation 1 - 2 puff IH Q6H PRN #2 each 01/30/19 05/01/19 Rx aerosol inhaler blood sugar diagnostic #100 strip 02/04/19 05/01/19 Rx colchicine 0.6 mg tablet 0.6 mg PO DAILY #90 tab 03/17/19 07/02/19 Rx insulin glargine 100 unit/mL (3 40 unit SUBCUT BID ml 05/01/19 07/02/19 History mL) subcutaneous pen Healthy Eyes Lutein-Zeaxanthin 1 cap PO QAM 06/10/19 06/10/19 History Oxygen 06/10/19 06/10/19 History acetaminophen 650 mg PO Q4H PRN 06/10/19 07/02/19 History allopurinol [Zyloprim] 450 mg PO BID 06/10/19 07/02/19 History fluticasone propionate 1 spray INTRANASAL DAILY 06/10/19 06/10/19 History furosemide 20 mg PO DAILY 06/10/19 06/10/19 History furosemide 40 mg PO DAILY 06/10/19 07/02/19 History magnesium chloride 64 mg PO BID 06/10/19 07/02/19 History melatonin 6 mg PO HS 06/10/19 06/10/19 History metformin 1,000 mg PO BID 06/10/19 07/02/19 History metformin [Glucophage] 1,000 mg PO BID 06/10/19 07/02/19 History metoprolol succinate 50 mg PO DAILY 06/10/19 06/10/19 History oxycodone 5 mg PO Q4H PRN 06/10/19 06/10/19 History polyethylene glycol 3350 17 g PO DAILY 06/10/19 07/02/19 History sennosides-docusate sodium [Senna 2 tab-cap PO BID 06/10/19 07/02/19 History with Docusate Sodium] valsartan 320 mg PO DAILY 06/10/19 07/02/19 History cefpodoxime 200 mg PO BID 06/19/19 06/19/19 History metoprolol succinate 200 mg PO DAILY 06/19/19 07/02/19 History tamsulosin 0.4 mg PO DAILY 06/19/19 07/02/19 History acidophilus-pectin, citrus 1 cap PO DAILY 07/02/19 07/02/19 History [Acidophilus Probiotic] ascorbic acid (vitamin C) [Vitamin 500 mg PO BID 07/02/19 07/02/19 History C] magnesium hydroxide [Milk of 30 ml PO PRN PRN 07/02/19 07/02/19 History Magnesia] miconazole nitrate [Micatin] 1 applic TOPICAL BID 07/02/19 07/02/19 History multivitamin with minerals 1 tab PO DAILY 07/02/19 07/02/19 History [Multiple Vitamin-Minerals] [id number]-qpso-FA-vit K 1 tab PO DAILY 07/02/19 07/02/19 History [Multi-Day Plus Minerals] nitroglycerin 0.4 mg SUBLINGUAL PRN PRN 07/02/19 07/02/19 History sennosides-docusate sodium 2 tab PO BID 07/02/19 07/02/19 History tamsulosin 0.4 mg PO DAILY 07/02/19 07/02/19 History valsartan 320 mg PO DAILY 07/02/19 07/02/19 History vancomycin 125 mg PO QID 07/02/19 07/02/19 History vancomycin 125 mg PO QID 07/02/19 07/02/19 History Allergies Allergy/AdvReac Type Severity Reaction Status Date / Time ibuprofen AdvReac Intermediate BLEEDING Verified 07/02/19 10:25 ULCERS omeprazole AdvReac Intermediate n/v Verified 07/02/19 10:25 pantoprazole AdvReac Unknown unknown Verified 07/02/19 10:25 Exam Narrative Exam Narrative: Morbidly obese male who on arrival to the intensive care unit was found to be profoundly lethargic unable to answer questions would only elicit moaning with noxious stimulation. HEENT was unremarkable. Neck is obese soft supple no JVD and no lymphadenopathy.palpable but diminished carotid pulses. Chest is obese with clear lung [place]. Heart is irregularly irregular and tachycardic with a soft systolic murmur over the aortic outflow tract. No palpable thrill or heave. Abdomen is obese soft and nontender without palpable masses or bruits. Bowel sounds are hypoactive. Lower extremities are without peripheral edema. Fingertips and toes are cool with acral cyanosis. We were unable to obtain pedal pulses by palpation but pulses were present by Doppler examination. Right foot and ankle is status post arthrodesis with well-healed scar along the distal medial tibia Since resuscitation with IV fluids and packed red blood cells he is now more alert and oriented and responsive and answering questions. He was somewhat verbally abusive to the nurses calling them names and swearing at them. His admitting nurse Ute discussed CODE STATUS with him in my presence. Patient clearly indicated that he does not want intubation or CPR or defibrillation in the event of cardiopulmonary arrest. Results Labs Result diagrams: 07/02/19 17:55 07/02/19 10:05 Labs: Laboratory Results - last 24 hr 07/02/19 07/02/19 07/02/19 09:47 10:05 10:05 WBC RBC Hgb Hct MCV MCH MCHC RDW Plt Count MPV Immature Gran % Neutrophils % Lymphocytes % Monocytes % Eosinophils % Basophils % Metamyelocytes % Absolute Neutrophils Absolute Lymphocytes Absolute Monocytes Absolute Eosinophils Absolute Basophils Differential Comment RBC Morphology Polychromasia Hypochromasia Poikilocytosis Anisocytosis Microcytosis Macrocytosis Sodium 136 Potassium 4.9 Chloride 103 Carbon Dioxide 20.0 L Anion Gap 13.0 H BUN 113 H* D Creatinine 1.92 H Estimated GFR/1.73 m2 34.31 Glucose 102 Lactate 1.2 Calcium 8.3 L Magnesium 1.8 Total Bilirubin 0.3 AST 20 ALT 30 Alkaline Phosphatase 115 Troponin I < 0.05 Total Protein 5.9 L Albumin 2.4 L Urine Color Urine Clarity Urine pH Ur Specific Morgan Urine Protein Urine Ketones Urine Blood Urine Nitrite Urine Bilirubin Urine Urobilinogen Ur Leukocyte Esterase Urine RBC Urine WBC Ur Epithelial Cells Urine Crystals Urine Bacteria Urine Casts Urine Mucus Ur Culture Indicated? Urine Glucose Patient ABO/Rh O Positive Antibody Screen Negative Crossmatch See Detail 07/02/19 07/02/19 10:05 10:49 WBC 11.76 H RBC 2.56 L Hgb 7.0 L Hct 22.3 L D MCV 87.1 MCH 27.3 MCHC 31.4 L RDW 16.5 H Plt Count 531 H MPV 9.9 Immature Gran % See Differential Neutrophils % 74.0 Lymphocytes % 17.0 Monocytes % 7.0 Eosinophils % 1.0 Basophils % 0.0 Metamyelocytes % 1.0 Absolute Neutrophils 8.70 H Absolute Lymphocytes 2.00 Absolute Monocytes 0.82 H Absolute Eosinophils 0.12 Absolute Basophils 0.00 Differential Comment Manual differential RBC Morphology See below Polychromasia Present Hypochromasia 2+ Poikilocytosis 2+ Anisocytosis 2+ Microcytosis 1+ Macrocytosis 1+ Sodium Potassium Chloride Carbon Dioxide Anion Gap BUN Creatinine Estimated GFR/1.73 m2 Glucose Lactate Calcium Magnesium Total Bilirubin AST ALT Alkaline Phosphatase Troponin I Total Protein Albumin Urine Color Yellow Urine Clarity Clear Urine pH 5.5 Ur Specific Morgan >= 1.030 H Urine Protein >=300 H Urine Ketones Negative Urine Blood Moderate H Urine Nitrite Negative Urine Bilirubin Small H Urine Urobilinogen 0.2 Ur Leukocyte Esterase Trace H Urine RBC 3-5 H Urine WBC 20-50 H Ur Epithelial Cells Rare Urine Crystals Few amorphous Urine Bacteria Moderate Urine Casts 3-5 coarse granular Urine Mucus Negative Ur Culture Indicated? Yes Urine Glucose Negative Patient ABO/Rh Antibody Screen Crossmatch Last Vital Signs Temp 36.4 C L 07/02/19 12:29 Pulse 79 07/02/19 12:42 Resp 25 H 07/02/19 12:50 BP 118/83 07/02/19 12:42 Pulse Ox 98 07/02/19 12:50
[2019-07-02] MEDS: Normal Saline 1,000 ML 30 ML IV (15:27)
[2019-07-02] MEDS: Normal Saline Flush 10 ML SYR IVP ×2 (15:50→19:28)
[2019-07-02 18:08] LABS: HCT 23.6 % (40.0-50.0); HGB 7.4 g/dL (13.5-17.5)
[2019-07-02 18:47] LABS: Troponin I < 0.05 ng/Ml (<0.06)
[2019-07-02] MEDS: Acetaminophen 325 MG TAB 650 MG PO (19:09)
[2019-07-02] MEDS: Pantoprazole 40 MG VIAL IVP (19:25)
--- NOTE | 2019-07-02 20:29 | EXPE_ITS ---
Date of service: 07/02/19 Time of Service: 20:29 Discharge Sum: Prov Provider Primary care physician: Therese Jeffrey MD Discharge Sum: Diag PCOD Cause of : Acute gastrointestinal hemorrhage Contributing Factors (1) Hypotension due to hypovolemia: (2) GI bleeding: (3) C. difficile colitis: (4) Acute on chronic kidney failure: (5) Aortic stenosis: (6) GERD (gastroesophageal reflux disease): (7) Coronary artery disease: (8) Atrial fibrillation: (9) Diabetes mellitus: (10) Chronic anticoagulation: (11) Obstructive sleep apnea syndrome: Discharge Sum: Summary Date and Time Admission Date: 07/02/2000/15/20 11:38 Date of : 07/02/19 Time of : 19:50 Summary Details: Patient was resuscitated from his acute GI bleeding w/ blood transfusions of packed RBC (3 units) in addition to multiple boluses of crystalloid. His anticoagulation w/ Rivaroxaban was reversed w/ Andexxa and he was treated w/ iv Protonix for presumed UGI bleeding. He was begun on iv Flagyl for confirmed C. difficile colitis. The patient developed agonal breathing and bradycardia around 19:30 and was given ambu-bag valve mask rescue breathing and atropine 1 mg IVP however he went into a pulseless electrical activity in which he had afib w/ bradycardia. PEA was confirmed by POCUS echocardiogram that demonstrated cardiac standstill. After attempt at rescue breathing and atropine no further resuscitation efforts were pursued in accordance w/ his prior wishes for DNR/DNI status which he expressed earlier in the afternoon during his time of lucidity. Additional Data Confirmation of as documented by pronouncing clinician: no pulse, no respirations, no heart crystal nds and pupils fixed and dilated Family: attempt made and not available Attending/PCP notified?: No Attending Physician: Uriel Van Was code activated?: No Autopsy requested?: No tyre finisher and examiner notified?: Yes Organ bank notified?: Yes Advance directives: No Hospice patient?: No
--- NOTE | 2019-07-03 08:24 | NUR.NOTE ---
07/03/19: At approx 0810 Rozina Ponce, the patient's former caregiver called. She requested information regarding the patient. As she was on the HIPPA, I informed her that the patient had and that the night nurse had attempted to call her. She said that she might not have heard the phone ring because she is a heavy sleeper. I passed the phone call to MD Maynard, who was present when the patient passed, and he described his passing to Ms. Ponce, and answered her questions. MD Maynard passed the call back to me and I informed Ms. Ponce that because we were not able to obtain information about the patient's wishes, we did not know which home to contact, and his body was still in the morgue. Ms. Ponce informed me that he wanted to be cremated, and that [facility] in [place] should handle it. She requested a copy of the certificate. I informed her that I would pass her request on to the Nursing Landscaping Supervisor and asked if I could give her name and phone number to the home who may have more questions for her and she had no objection. After we hung up, I called the Nursing Landscaping Supervisor to inform her of the conversation.
== END 2019-07-02 23:00 | disposition expired | DRG 378 ==
LOC: ER 12:35 → ICU 13:09
PROVIDERS: Admitting Provider Internal Medicine; Emergency Provider Emergency Medicine; PCP Family Medicine; Visit Provider Internal Medicine
DX: K92.2 Gastrointestinal hemorrhage, unspecified (principal); A04.72 Enterocolitis due to Clostridium difficile, not specified as recurrent; N17.9 Acute kidney failure, unspecified; I95.89 Other hypotension; D50.0 Iron deficiency anemia secondary to blood loss (chronic); E86.1 Hypovolemia; E11.22 Type 2 diabetes mellitus with diabetic chronic kidney disease; N18.9 Chronic kidney disease, unspecified; K21.9 Gastro-esophageal reflux disease without esophagitis; I25.10 Atherosclerotic heart disease of native coronary artery without angina pectoris; I48.91 Unspecified atrial fibrillation; Z79.01 Long term (current) use of anticoagulants; G47.33 Obstructive sleep apnea (adult) (pediatric); I35.0 Nonrheumatic aortic (valve) stenosis; Z95.5 Presence of coronary angioplasty implant and graft
CPT/HCPCS: 36415; 36430; 51702; 80053; 86850; 86900; 86901; 86920; 87040; 87077; 87081; 93005; 99238; 99285; 99291; 71045; 81003; 81015; 83605; 83735; 84484; 85014; 85018; 85025; 87086; 87186; 93010; J0131; P9016